=== PATIENT | male | born 1935 | race Caucasian/White ===

== ENCOUNTER → 2017-02-07 | Outpatient (CLI) | payer MEDICARE, OTHER ==
[~2017-02-07] MED LIST: ASPI-587 PO; ATOR20TA66 PO; ESCI20TA2 PO; FENT1PAT2 TD; OMEP40CA36 PO; PREG150C PO; SILO8CAP PO; TRAM100T28 PO
--- NOTE | 2017-02-07 18:35 | Diagnostic Imaging Report ---
EXAM: PA and lateral views of the chest. INDICATION: Cough. Chest pain. FINDINGS: The lungs are clear. The heart size is normal. No effusion or pneumothorax. The mediastinum and moi appear unremarkable. IMPRESSION: Unremarkable exam. Dictated by: Dictated on workstation # [id number]
== END ==
LOC: RAD 13:55
PROVIDERS: ATTEND Internal Medicine
DX: R05 Cough (principal); R07.9 Chest pain, unspecified
CPT/HCPCS: 71020

== ENCOUNTER → 2022-02-24 | Outpatient (CLI) | payer MEDICARE, OTHER ==
[~2022-02-24] MED LIST changes: +CATHETER FLUSH 10 ML SYR IV PRN; +HOLD METFORMIN - RECEIVED CONTRAST 20 ML VIAL IV SCH; +IOHEXOL 350 MG/ML 100 ML (OMNIPAQUE 350) VIAL IV ONE; +NS 100 ML (IVPB) BAG IV ONE
--- NOTE | 2022-02-24 14:25 | Diagnostic Imaging Report ---
PROCEDURE: CT abdomen and pelvis with contrast. TECHNIQUE: Multiple contiguous axial images were obtained through the abdomen and pelvis after administration of intravenous contrast. Auto Exposure Controls were utilized during the CT exam to meet ALARA standards for radiation dose reduction. All CT scans use one or more of the following dose optimizing techniques: automated exposure control, MA and/or KvP adjustment based on patient size and exam type or iterative reconstruction. INDICATION: Lower abdominal pain and hematuria. Patient has history of kidney stones. COMPARISON: No prior studies are available for comparison. FINDINGS: Lung bases are clear of acute infiltrates. Liver shows a circumscribed low-attenuation lesion in the left lobe measuring 3.0 cm in diameter and suggestive of a cyst. Gallbladder is surgically absent. Extrahepatic bile duct is prominent which may be owing to post cholecystectomy. The pancreas and spleen are unremarkable. No adrenal mass is detected. Right kidney does contain an approximately 5 to 6 mm nonobstructing calculus. No ureteral calculi or hydronephrosis are identified. Bladder does show a lobulated mass along the right bladder wall measuring 19 mm in size consistent with a small bladder neoplasm. Prostate is unremarkable. Aorta is nonaneurysmal. No central retroperitoneal or mesenteric lymphadenopathy is seen. Bowel loops are nonobstructed. There is no free fluid or fluid collection. No pelvic lymphadenopathy is identified. Bony structures are nonacute. IMPRESSION: 1. Hepatic cyst. 2. Status post cholecystectomy. 3. Nonobstructing right renal calculus. 4. Soft tissue mass along the right bladder wall suggestive of a bladder neoplasm. Cystoscopy is recommended. Dictated by: Dictated on workstation # [id number]
== END ==
LOC: RAD 13:45
PROVIDERS: ATTEND Internal Medicine
DX: N20.0 Calculus of kidney (principal); K76.89 Other specified diseases of liver; N32.89 Other specified disorders of bladder; Z90.49 Acquired absence of other specified parts of digestive tract
CPT/HCPCS: 74177

== ENCOUNTER 2022-03-18 05:32 | Outpatient (CLI) | payer MEDICARE, OTHER ==
[~2022-03-18] VITALS: Ht 185.5 cm; Wt 102.3 kg
[~2022-03-18 05:32] MED LIST changes: -CATHETER FLUSH 10 ML SYR IV PRN; -HOLD METFORMIN - RECEIVED CONTRAST 20 ML VIAL IV SCH; -IOHEXOL 350 MG/ML 100 ML (OMNIPAQUE 350) VIAL IV ONE; -NS 100 ML (IVPB) BAG IV ONE
[2022-03-19] MEDS ORDERED: FENT1PAT11 TD (17:49)
[2022-03-19] MEDS ORDERED: TEST60GE2 TD (17:49)
[2022-03-19] MEDS ORDERED: SILO8CAP6 PO (17:49)
== END 2022-03-19 18:00 | disposition home or self-care (01) ==
LOC: PREOP 05:32
PROVIDERS: ATTEND Urology
DX: Z01.818 Encounter for other preprocedural examination (principal)

== ENCOUNTER 2022-03-24 07:04 | Day surgery (SDC) | payer MEDICARE, OTHER ==
[2022-03-24] VITALS (11 sets, daily range): BP systolic 91–175; BP diastolic 56–109
[~2022-03-24] VITALS: Ht 185.5 cm; Wt 102.3 kg
[~2022-03-24 07:04] MED LIST changes: +FENT1PAT11 TD; +SILO8CAP6 PO; +TEST60GE2 TD
[2022-03-24] MEDS ORDERED: cefTRIAXone 1 GM PRE-MIX 50 ML IV ONE (07:15)
--- NOTE | 2022-03-24 07:20 | Progress Note-Pre Operative ---
Pre-Operative Progress Note H&P Reviewed The H&P was reviewed, patient examined and no changes noted. Date Seen by Provider: March 24, 2022 Time Seen by Provider: 07:20 Date H&P Reviewed: March 24, 2022 Time H&P Reviewed: 07:20 Pre-Operative Diagnosis: BLADDER TUMOR NICHOLE HARMON MD March 24, 2022 07:20
--- NOTE | 2022-03-24 07:21 | Progress Note-Post Operative ---
Post-Operative Progess Note Surgeon (s)/Horseradish Grinder (s) Surgeon NICHOLE HARMON MD Horseradish Grinder: NONE Pre-Operative Diagnosis BLADDER TUMOR (LARGE) Post-Operative Diagnosis SAME Procedure & Operative Findings Date of Procedure 03/24/22 Procedure Performed/Findings TURBT Anesthesia Type GENERAL Estimated Blood Loss Estimated blood loss (mL): NEGLIGIBLE Specimens/Packing Specimens Removed BLADDER TUMOR AND BASE Packing: NONE NICHOLE HARMON MD March 24, 2022 07:21
--- NOTE | 2022-03-24 07:22 | Discharge Inst-Urology ---
Discharge Inst-Urology Reconcile Patient Problems Problems Reviewed?: Yes Final Diagnosis BLADDER TUMOR Patient Instructions/Follow Up Plan/Assessment/Instructions Please make appointment to been seen in office in 2 weeks. Increase oral fluids for 48 hours and then as needed. Diet and Activity as tolerated. If questions or concerns contact your physician Or seek help at emergency department. NICHOLE HARMON MD March 24, 2022 07:22
[2022-03-24] MEDS ORDERED: fentaNYL INJ 100 MCG/2 ML AMP IVP ONE ×2 (08:00→10:15)
[2022-03-24] MEDS: LACTATED RINGERS 1,000 ML IV PRN ×2 (08:00→10:00)
[2022-03-24] MEDS ORDERED: fentaNYL INJ 100 MCG/2 ML AMP ONE ×2 (08:02→08:41)
[2022-03-24] MEDS ORDERED: proPOfol 200 MG/20 ML (DIPRIVAN) VIAL IV ONE (08:41)
[2022-03-24] MEDS ORDERED: LIDOCAINE PF 2% 5 ML (XYLOCAINE) VIAL ONE (08:41)
[2022-03-24] MEDS ORDERED: ONDANSETRON 4 MG/2 ML (SDV) Z0FRAN ONE (08:41)
[2022-03-24] MEDS ORDERED: SEVOFLURANE (ULTANE) 15 ML INHAL SOLN ONE (10:04)
--- NOTE | 2022-03-24 10:11 | Anesthesia-General Post-Op ---
General Patient Condition Mental Status/LOC: Same as Preop Cardiovascular: Satisfactory Nausea/Vomiting: Absent Respiratory: Satisfactory Pain: Controlled Complications: Absent Post Op Complications Complications None Follow Up Care/Instructions Patient Instructions None needed. Anesthesia/Patient Condition Patient Condition Patient is doing well, no complaints, stable vital signs, no apparent adverse anesthesia problems. No complications reported per nursing. MOISE REID CRNA March 24, 2022 10:11
[2022-03-24] MEDS ORDERED: MEPERIDINE (DEMEROL) INJ 50 MG/ML IVP ONE (10:15)
[2022-03-24] MEDS ORDERED: PHEN-640 PO (10:15)
[2022-03-24] MEDS ORDERED: ONDANSETRON 4 MG/2 ML (SDV) Z0FRAN IVP PRN (10:15)
[2022-03-24] MEDS ORDERED: CIPR-226 PO (10:15)
[2022-03-24] MEDS ORDERED: PHENAZOPYRIDINE 100 MG (PYRIDIUM) TABLET PO ONE (11:15)
[2022-03-24] MEDS ORDERED: HYDROcodone/APAP 5 MG/325 MG (LORTAB) TAB ONE (14:23)
[2022-03-24] MEDS ORDERED: HYDROcodone/APAP 5 MG/325 MG (LORTAB) TAB PO ONE (14:30)
--- NOTE | 2022-03-24 15:05 | OPERATIVE REPORT ---
DATE OF SERVICE: 03/24/2022 PREOPERATIVE DIAGNOSIS: Large bladder tumor. POSTOPERATIVE DIAGNOSIS: Large bladder tumor. OPERATION PERFORMED: Transurethral resection of large bladder tumor. SURGEON: Nichole Harmon MD ANESTHESIA: General. COMPLICATIONS: None. PROCEDURE IN DETAIL: The patient in lithotomy position, under general anesthesia, the genitalia were prepped and draped in the usual sterile fashion. Urethra was dilated with Renny sound to #30 [place] to accommodate 27-[place] Arredondo resectoscope. Again, visualized a single large bladder tumor in the anterior wall roof of the bladder to the right, which makes the position very difficult for resection. However, I was able to resect the tumor completely, cauterized all bleeders and obtained a separate bite from the base where the stalk of the papillary type tumor connected to the bladder. Hemostasis was complete. The bladder chips were sent separately from the base. Estimated blood loss was negligible. The patient tolerated the procedure and anesthesia well and was sent to recovery room in stable condition. CC: Dr. Ng - requested, unable to deliver. Job ID: [id number] DocumentID: [id number] Dictated Date: 03/24/2022 10:10:18 Geology Technician Date: 03/24/2022 15:04:38 Dictated By: NICHOLE HARMON MD
== END 2022-03-24 14:55 | disposition home or self-care (01) ==
LOC: SDC 07:04
PROVIDERS: ATTEND Urology
DX: C67.9 Malignant neoplasm of bladder, unspecified (principal)
CPT/HCPCS: 87081; 88307

== ENCOUNTER 2022-03-26 13:58 | Inpatient (IN) | payer MEDICARE, OTHER ==
[~2022-03-26] VITALS: Ht 185 cm; Wt 102.0 kg
[~2022-03-26 13:58] MED LIST changes: +CIPR-226 PO; +PHEN-640 PO
--- NOTE | 2022-03-26 14:22 | ED Abdominal Pain ---
General Chief Complaint: Abdominal/GI Problems Stated Complaint: POST OP BLOATING Source of Information: Patient Exam Limitations: No Limitations History of Present Illness Date Seen by Provider: March 26, 2022 Time Seen by Provider: 14:19 Initial Comments Patient is a 87-year-old male who presents ED with abdominal discomfort and bloating with distention. Patient had bladder tumor resection performed by Dr. Richards on Tuesday. Had a large tumor removed. Since his surgery has had some lower abdominal discomfort and continues bloating. Dry heaving without vomiting. Has had bowel movements. Was seen in the clinic today and found to have 250 cc in his bladder that was described as orange. He states he is urin ating every 5-12 hours a very small amount. Dr. Richards is concerned for possible bladder injury secondary to the surgery and possible leaking in his peritoneum. Recommended lab work and CT abdomen and cystogram. Patient denies fever, chest pain, shortness of breath, headache, dizziness. Allergies and Home Medications Allergies Coded Allergies: morphine (Unverified Allergy, Severe, 03/19/22) HALLUCINATIONS Patient Home Medication List Home Medication List Reviewed: Yes Ciprofloxacin HCl (Cipro) 250 Mg Tablet, 250 MG PO BID Prescribed by: JACQUELINE LARES on 03/24/22 1015 Escitalopram Oxalate (Lexapro) 20 Mg Tablet, 20 MG PO BID, (Reported) Entered as Reported by: COLLEEN COLBY on 12/10/14 1143 Fentanyl (Fentanyl Patch 100 MCG) 100 Mcg/Hour Patch.td72, 100 MCG TD Q48H, (Reported) Entered as Reported by: JOSH SAMAYOA on 03/19/22 1749 Omeprazole (Omeprazole) 40 Mg Capsule.dr, 40 MG PO DAILY, (Reported) Entered as Reported by: COLLEEN COLBY on 12/10/14 1143 Phenazopyridine HCl (Pyridium) 200 Mg Tablet, 1 TAB PO TID PRN for PAIN-MILD (1- 4) Prescribed by: JACQUELINE LARES on 03/24/22 1015 Pregabalin (Lyrica) 150 Mg Capsule, 300 MG PO BID, (Reported) Entered as Reported by: COLLEEN COLBY on 12/10/14 1143 Silodosin (Silodosin) 8 Mg Capsule, 8 MG PO HS, (Reported) Entered as Reported by: JOSH SAMAYOA on 03/19/221748 Testosterone (Testosterone) Unknown Strength Gel.human services assistant, Unknown Dose TD, (Reported) Entered as Reported by: JOSH SAMAYOA on 03/19/221748 Tramadol Hcl (Tramadol Hcl) 100 Mg Tbmp.24hr, 100 MG PO Q6H PRN for PAIN, (Reported) Entered as Reported by: COLLEEN COLBY on 12/10/14 1143 Review of Systems Review of Systems Constitutional: No chills, No diaphoresis, No malaise, No weakness EENTM: No Blurred Vision, No Eye Pain, No Mouth Pain, No Mouth Swelling Respiratory: Denies Cough, Denies Shortness of Air, Denies SOA at Rest, Denies Stridor, Denies Wheezing Cardiovascular: Denies Chest Pain, Denies Edema Gastrointestinal: Abdomen Distended, Abdominal Pain; Denies Constipated, Denies Diarrhea; Nausea; Denies Vomiting Genitourinary: Denies Burning, Denies Discharge, Denies Flank Pain, Denies Hematuria Musculoskeletal: No back pain, No gout, No joint swelling, No muscle pain Skin: No change in color, No change in hair/nails All Other Systems Reviewed Negative Unless Noted: Yes Past Nqarheu-Tdlcbr-Lrgdtv Hx Immunizations Up To Date First/Initial COVID19 Vaccinat: 2020 Second COVID19 Vaccination Rohan: 2020 Seasonal Allergies Seasonal Allergies: Yes Past Medical History Surgeries: Yes (kidney stone, 2abd surgeries for adhesion, HERNIA REPAIR) Appendectomy, Gallbladder Respiratory: No Currently Using CPAP: No Currently Using BIPAP: No Cardiac: No Neurological: No Reproductive Disorders: No Genitourinary: Yes (BLADDER TUMOR) Kidney Stones Gastrointestinal: Yes Gastroesophageal Reflux Musculoskeletal: Yes (history of crushing injuries to shoulders) Endocrine: No HEENT: Yes (READERS, DENTURES) Cancer: Yes Bladder Psychosocial: Yes Sleep Difficulties, Anxiety, Depression Blood Disorders: Yes (had increased hgb and had therapeutic phlebotomy) Adverse Reaction/Blood Tranf: No Physical Exam Vital Signs Vital Signs - First Documented 03/26/22 14:15 Temp 36.7 Pulse 90 Resp 14 B/P (MAP) 188/103 (131) Pulse Ox 92 O2 Delivery Nasal Cannula Capillary Refill : Height/Weight/BMI Height: 6'0.00" Weight: 225lbs. oz. 102.575621ht; 29.72 BMI Method:Stated General Appearance: WD/WN, no apparent distress HEENT: PERRL/EOMI, normal ENT inspection, TMs normal, pharynx normal Neck: non-tender, full range of motion, supple, normal inspection Respiratory: chest non-tender, lungs clear, normal breath sounds, no respiratory distress, no accessory muscle use Cardiovascular: regular rate, rhythm, no edema, no gallop, no JVD Gastrointestinal: normal bowel sounds, distended, tenderness (Bilateral lower abdominal tenderness.) Extremities: normal range of motion, non-tender, normal inspection, no pedal edema Back: normal inspection, no CVA tenderness, no vertebral tenderness Neurologic/Psychiatric: apricot washer II-XII nml as tested, no motor/sensory deficits, alert, normal mood/affect, oriented x 3 Skin: normal color Progress/Results/Core Measures Results/Orders Lab Results Laboratory Tests Test 03/26/22 14:20 Range/Units White Blood Count 7.7 4.3-11.0 10^3/uL Red Blood Count 4.75 4.30-5.52 10^6/uL Hemoglobin 14.1 13.3-17.7 g/dL Hematocrit 40 40-54 % Mean Corpuscular Volume 84 80-99 fL Mean Corpuscular Hemoglobin 30 25-34 pg Mean Corpuscular Hemoglobin Concent 35 32-36 g/dL Red Cell Distribution Width 12.7 10.0-14.5 % Platelet Count 218 130-400 10^3/uL Mean Platelet Volume 9.7 9.0-12.2 fL Immature Granulocyte % (Auto) 0 % Neutrophils (%) (Auto) 63 42-75 % Lymphocytes (%) (Auto) 22 12-44 % Monocytes (%) (Auto) 14 H 0-12 % Eosinophils (%) (Auto) 1 0-10 % Basophils (%) (Auto) 0 0-10 % Neutrophils # (Auto) 4.8 1.8-7.8 X 10^3 Lymphocytes # (Auto) 1.7 1.0-4.0 X 10^3 Monocytes # (Auto) 1.1 H 0.0-1.0 X 10^3 Eosinophils # (Auto) 0.1 0.0-0.3 10^3/uL Basophils # (Auto) 0.0 0.0-0.1 10^3/uL Immature Granulocyte # (Auto) 0.0 0.0-0.1 10^3/uL Sodium Level 126 L 135-145 MMOL/L Potassium Level 4.7 3.6-5.0 MMOL/L Chloride Level 93 L 98-107 MMOL/L Carbon Dioxide Level 21 21-32 MMOL/L Anion Gap 12 5-14 MMOL/L Blood Urea Nitrogen 34 H 7-18 MG/DL Creatinine 5.11 H 0.60-1.30 MG/DL Estimat Glomerular Filtration Rate 10 BUN/Creatinine Ratio 7 Glucose Level 111 H 70-105 MG/DL Calcium Level 9.0 8.5-10.1 MG/DL Corrected Calcium 9.2 8.5-10.1 MG/DL Total Bilirubin 2.2 H 0.1-1.0 MG/DL Aspartate Amino Transf (AST/SGOT) 101 H 5-34 U/L Alanine Aminotransferase (ALT/SGPT) 65 H 0-55 U/L Alkaline Phosphatase 138 H 40-136 U/L Total Protein 7.0 6.4-8.2 GM/DL Albumin 3.8 3.2-4.5 GM/DL My Orders Orders - DEANDRE GREER PA Cbc With Automated Diff (03/26/22 14:04) Comprehensive Metabolic Panel (03/26/22 14:04) Ct Cystogram (03/26/22 14:04) Bladder Scan (03/26/22 14:20) Chest 1 View, Ap/Pa Only (03/26/22 14:33) Fentanyl Inj (Sublimaze Injection) (03/26/22 14:40) Ns Iv 1000 Ml (Sodium Chloride 0.9%) (03/26/22 14:54) Lidocaine 2% (Urojet) (Xylocaine Urojet) (03/26/22 15:00) Lidocaine 2% (Urojet) (Xylocaine Urojet) (03/26/22 14:56) Iohexol Injection (Omnipaque 350 Mg/Ml 1 (03/26/22 15:00) Received Contrast (Hold Metformin- Contr (03/26/22 15:00) Di Iv Start (Assessment) .IV start (03/26/22 14:58) Ct Abdomen Wo (03/26/22 ) Fentanyl Inj (Sublimaze Injection) (03/26/22 16:23) Ed Admission (Communication) (03/26/22 16:30) Fentanyl Inj (Sublimaze Injection) (03/26/22 16:30) Medications Given in ED Vital Signs/I&O 03/26/22 14:15 Temp 36.7 Pulse 90 Resp 14 B/P (MAP) 188/103 (131) Pulse Ox 92 O2 Delivery Nasal Cannula Departure Communication (Admissions) Time/Spoke to Admitting Phy: 16:[address] Richards who recommends catheter, IV hydration antibiotics (keflex) and pain medication. Redraw lab work in the morning. KUB to monitor progress. Patient does have a perforation of the bladder that shows extraperitoneal fluid with no intraperitoneal fluid. Did contact radiology at [place] to make sure and verified that there was no intraperitoneal fluid which they acknowledge that everything is extraperitoneal. The report from the cystography note only extraperitoneal fluid but the CT scan did note intraperitoneal. Radiology said there is no intraperitoneal fluid. Dr Richards will treat nonoperative at this time. Acute kidney injury with a creatinine of 5.11 and a GFR of 10. BUN 34. Patient was started on a liter of fluid. Possibly related to absorption of urine. Pain control with IV pain medication. Started patient on IV Rocephin. Patient will be admitted to Dr. Jacinto. Impression Primary Impression: Perforation of bladder Additional Impression: MASON (acute kidney injury) Disposition: ADMITTED INPATIENT Condition: Stable Admissions Decision to Admit Reason: Admit from ER (General) Decision to Admit/Date: March 26, 2022 Time/Decision to Admit Time: 16:31 Departure-Patient Inst. Referrals: CINDA CHAN MD (PCP/Family) Primary Care Physician DEANDRE GREER March 26, 2022 14:22
[2022-03-26 14:28] LABS: BASOPHILS % (AUTO) 0 % (0-10); EOSINOPHILS # (AUTO) 0.1 10^3/uL (0.0-0.3); EOSINOPHILS % (AUTO) 1 % (0-10); HEMATOCRIT 40 % (40-54); HEMOGLOBIN 14.1 g/dL (13.3-17.7); LYMPHOCYTES # (AUTO) 1.7 X 10^3 (1.0-4.0); LYMPHOCYTES % (AUTO) 22 % (12-44); MEAN CORPUSCULAR HEMOGLOBIN 30 pg (25-34); MEAN CORPUSCULAR HGB CONC 35 g/dL (32-36); MEAN CORPUSCULAR VOLUME 84 fL (80-99); MEAN PLATELET VOLUME 9.7 fL (9.0-12.2); MONOCYTES # (AUTO) 1.1 X 10^3 (0.0-1.0); MONOCYTES % (AUTO) 14 % (0-12); NEUTROPHILS # (AUTO) 4.8 X 10^3 (1.8-7.8); NEUTROPHILS % (AUTO) 63 % (42-75); PLATELET COUNT 218 10^3/uL (130-400); WHITE BLOOD COUNT 7.7 10^3/uL (4.3-11.0)
[2022-03-26] MEDS ORDERED: fentaNYL INJ 100 MCG/2 ML AMP IVP STA (14:40)
[2022-03-26 14:44] LABS: ALBUMIN 3.8 GM/DL (3.2-4.5); POTASSIUM 4.7 MMOL/L (3.6-5.0)
[2022-03-26 14:48] LABS: BILIRUBIN,TOTAL 2.2 MG/DL (0.1-1.0)
[2022-03-26 14:50] LABS: CREATININE SERUM 5.11 MG/DL (0.60-1.30)
[2022-03-26] MEDS ORDERED: NS IV 1000 ML 1,000 ML IV STA (14:54)
[2022-03-26] MEDS ORDERED: LIDOCAINE UROJET 2% GEL 10 ML PKG ONE (14:56)
[2022-03-26] MEDS ORDERED: LIDOCAINE UROJET 2% GEL 10 ML PKG TOP ONE (15:00)
[2022-03-26] MEDS ORDERED: HOLD METFORMIN - RECEIVED CONTRAST 20 ML VIAL IV SCH (15:00)
[2022-03-26] MEDS ORDERED: IOHEXOL 350 MG/ML 100 ML (OMNIPAQUE 350) VIAL IV ONE (15:00)
--- NOTE | 2022-03-26 15:51 | Diagnostic Imaging Report ---
CT CYSTOGRAM INDICATION: Recent bladder surgery for tumor resection. Abdominal pain. COMPARISON: None available. TECHNIQUE: CT abdomen and pelvis without contrast performed concurrently. FINDINGS: Precontrast imaging shows fluid within the retroperitoneal space in the mid abdomen. The urinary bladder has a Og catheter in place. There is moderate stranding throughout the preperitoneal space of Retzius. After instillation of contrast material into the urinary bladder, contrast fills the extraperitoneal space of Retzius through a defect in the right lateral wall of the urinary bladder. The contrast is predominantly maintained within the space of Retzius but does track along the right pelvic sidewall into the presacral space. It also extends cranially into the retroperitoneal space. No fracture. 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 Visualized bowel loops are not dilated. No pelvic or inguinal lymphadenopathy. IMPRESSION: 1. CT cystography confirms the presence of a focal perforation in the right lateral aspect of the urinary bladder with contrast spilling into the extraperitoneal retropubic space of Retzius. The extravasated contrast extends along the right pelvic sidewall and into the presacral space. Additionally, it extends cranially into the retroperitoneum. Dictated by: Dictated on workstation # [id number]
--- NOTE | 2022-03-26 15:52 | Diagnostic Imaging Report ---
INDICATION: Shortness of breath. Frontal chest obtained at 3:25 p.m. and compared to 02/07/2017. FINDINGS: Heart and mediastinal silhouette are normal in appearance. There is no focal infiltrate, pneumothorax, or pleural fluid. Old right clavicle fracture is noted. IMPRESSION: No acute process in the chest. Dictated by: Dictated on workstation # [id number]
--- NOTE | 2022-03-26 16:00 | Diagnostic Imaging Report ---
PROCEDURE: CT abdomen without contrast. TECHNIQUE: Multiple contiguous axial images were obtained through the abdomen without the use of intravenous contrast. Auto Exposure Controls were utilized during the CT exam to meet ALARA standards for radiation dose reduction. INDICATION: Recent bladder surgery. COMPARISON: CT cystogram performed concurrently. FINDINGS: A small amount of free intraperitoneal fluid present. Additionally, there is retroperitoneal fluid seen in the lower abdomen. Nonobstructing 5 mm right renal stone is unchanged. No free intraperitoneal air. Bibasilar atelectasis/scar. Unenhanced liver is stable in appearance with a simple cyst in the left hepatic lobe. The spleen and pancreas are grossly normal. No adrenal mass. No bowel obstruction. Mild degenerative dextrocurvature in the lumbar spine. IMPRESSION: 1. Small volume of retroperitoneal and intraperitoneal fluid. This is likely secondary to patient's bladder rupture that is better described in the separate CT cystogram report. Dictated by: Dictated on workstation # [id number]
[2022-03-26] MEDS ORDERED: fentaNYL INJ 100 MCG/2 ML AMP ONE (16:23)
[2022-03-26] MEDS ORDERED: fentaNYL INJ 100 MCG/2 ML AMP IVP ONE (16:30)
[2022-03-26] MEDS ORDERED: PHENAZOPYRIDINE 100 MG (PYRIDIUM) TABLET PO ONE (17:30)
[2022-03-26 17:57] VITALS: BP 192/97
[2022-03-26] MEDS ORDERED: ENOXAPARIN 40 MG/0.4 ML (LOVENOX) SYR SC SCH (18:15)
[2022-03-26] MEDS ORDERED: polyethylene glycoL POWDER 17 GM (MIRALAX) PACK PO PRN (18:15)
[2022-03-26] MEDS ORDERED: MELATONIN 3 MG TABLET PO PRN (18:15)
[2022-03-26] MEDS ORDERED: ONDANSETRON 4 MG (ZOFRAN) ORAL DISSOLVE TAB PO PRN (18:15)
[2022-03-26] MEDS ORDERED: ANTACID SUSP 30 ML UDC (MYLANTA) PO PRN (18:15)
[2022-03-26] MEDS ORDERED: ACETAMINOPHEN 325 MG TABLET PO PRN (18:15)
[2022-03-26] MEDS: NS IV 1000 ML 1,000 ML IV SCH ×2 (18:23→18:34)
[2022-03-26] MEDS ORDERED: ENOXAPARIN INJECTION 30 MG/0.3 ML SYR SC SCH (18:30)
[2022-03-26] MEDS ORDERED: cefTRIAXone 1 GM PRE-MIX 50 ML IV SCH (18:30)
[2022-03-26] MEDS: hydrALAZINE (APESOLINE) 20 MG/ML VIAL IV PRN ×2 (18:49→23:51)
[2022-03-26 19:36] VITALS: BP 188/77
[2022-03-26] MEDS ORDERED: hydrALAZINE (APESOLINE) 20 MG/ML VIAL IV SCH (20:00)
[2022-03-26 23:53] VITALS: BP 193/97
[2022-03-27] VITALS (8 sets, daily range): BP systolic 109–196; BP diastolic 62–108
[2022-03-27] MEDS: ONDANSETRON 4 MG/2 ML (SDV) Z0FRAN IV PRN ×2 (03:43→12:00)
[2022-03-27] MEDS ORDERED: hydrALAZINE (APESOLINE) 20 MG/ML VIAL IV PRN (04:00)
[2022-03-27] MEDS: fentaNYL INJ 100 MCG/2 ML AMP IVP PRN ×2 (04:13→09:31)
[2022-03-27] MEDS: NS IV 1000 ML 1,000 ML IV SCH (04:14)
[2022-03-27] MEDS ORDERED: POTASSIUM CL 10MEQ/50ML IVPB 50 ML IV SCH (06:00)
[2022-03-27] MEDS ORDERED: MAGNESIUM 1 GM/100 ML IVPB 100 ML IV SCH (06:00)
[2022-03-27] MEDS ORDERED: KCL 20 MEQ TAB (K-DUR) PO SCH (06:00)
[2022-03-27 09:19] LABS: CALCIUM 8.7 MG/DL (8.5-10.1); CREATININE SERUM 1.85 MG/DL (0.60-1.30); MAGNESIUM 2.4 MG/DL (1.6-2.4); POTASSIUM 4.2 MMOL/L (3.6-5.0)
--- NOTE | 2022-03-27 10:47 | Diagnostic Imaging Report ---
EXAM: ABDOMEN/KUB 1VIEW INDICATION: Bladder perforation. COMPARISON: CT cystogram 03/26/2022. FINDINGS: Nonspecific bowel gas pattern. No free intraperitoneal air is identified. The lung bases are clear. No acute osseous findings. IMPRESSION: No acute radiographic findings in the abdomen. Dictated by: Dictated on workstation # [id number]
--- NOTE | 2022-03-27 14:24 | Discharge Inst-Urology ---
Discharge Inst-Urology Reconcile Patient Problems Problems Reviewed?: Yes Final Diagnosis EXTRAPERITONEAL BLADDER PERFORATION Patient Instructions/Follow Up Plan/Assessment/Instructions Discharge with de la cruz and leg bag day time and large bag night time with instructions. Call office Tuesday to change follow up appointment to monday 04/02 Keep all postop instructions Increase oral fluids for 48 hours and then as needed. Diet and Activity as tolerated. If questions or concerns contact your physician Or seek help at emergency department. NICHOLE HARMON MD March 27, 2022 14:24
--- NOTE | 2022-03-27 19:20 | CONSULTATION REPORT ---
DATE OF SERVICE: 03/27/2022 ATTENDING PHYSICIAN: Dr. Jacinto. SUMMARY: An 87-year-old white man, who had a large bladder tumor resected two days prior to his admission, was really uneventful with no bleeding, no problem, went home without a catheter. He started having some problems on with some bloating and some discomfort and tenderness, but did not call the office until Tuesday, the morning of his admission, when he complained of a feeling of retention and incomplete emptying. He came to the office in 250 mL of clear urine, orange in color secondary to Pyridium was drained. There was no bleeding. Nurse noticed that he is being a kind of little distended especially on the right side with tenderness and question of rebound. I was on my way to [place] and she called me and informed me so I told her to have the patient to go to the emergency room; however, the patient said that he may go next day if he is not feeling well. We insisted and he recently went to the emergency room with his . I called the emergency room and gave them orders. He had a CT cystogram and CT abdomen, which revealed an extraperitoneal leak from the site of the tumor all extraperitoneal and retroperitoneal, but no intraperitoneal perforation or leakage. At that time, the ER was concerned because his creatinine was 5.11 and GFR of 10. His BUN was 30. They started him on fluid, pain control and IV medicine, IV Rocephin oral at my instruction. I told him that the increase in creatinine is most probably due to absorption of urine that is creatinine, but we went ahead and admitted him. Today, he is doing very well, feeling much better. Pain is much improved. His creatinine was down to 1.8. His urine remains clear and no blood. He expressed the wish to go home, which I had no objection about it. I got the okay from Dr. Jacinto, medically speaking and he consented it. I had a lengthy discussion with him and his and his family that this complication was the result of the surgery causing some seepage of urine into the extraperitoneum and the retroperitoneum, none into the intraperitoneum and that we will treat it with a catheter for seven days. I will see him back at the office and we will order a cystogram to make sure the area has healed before we decide to take the catheter out. I stressed that if he has any problem to call the office or come to the emergency room and stressed with his family and his as well. I checked with Dr. Jacinto and he was agreeable and asked me to go ahead and write the discharge orders, which I did. We will see him back next Tuesday at the office. He is to continue his Cipro at home. IMPRESSION: Extraperitoneal perforation of the bladder. PLAN: As above. CC: Kimberly Jacinto - requested, unable to deliver. Job ID: [id number] DocumentID: [id number] Dictated Date: 03/27/2022 14:29:59 Sole Stapler Welt Date: 03/27/2022 19:20:23 Dictated By: NICHOLE HARMON MD
[2022-03-28] MEDS ORDERED: HYDR-3820 PO (14:01)
== END 2022-03-27 15:13 | disposition home or self-care (01) | DRG 699 ==
LOC: EDUNIT# 13:58 → ER 14:00 → 4TH 16:31
PROVIDERS: ADMIT Internal Medicine; ATTEND Internal Medicine
DX: N99.89 Other postprocedural complications and disorders of genitourinary system (principal); N17.9 Acute kidney failure, unspecified; N32.89 Other specified disorders of bladder; K21.9 Gastro-esophageal reflux disease without esophagitis; F41.9 Anxiety disorder, unspecified; F32.A Depression, unspecified
CPT/HCPCS: 36415; 51702; 71045; 72192; 74018; 74150; 80048; 80053; 83735; 85025; 96374; 96375

== ENCOUNTER 2022-03-28 10:06 | Emergency (ER) | payer MEDICARE, OTHER ==
[2022-03-28] MEDS ORDERED: LACTATED RINGERS 1,000 ML IV STA (10:38)
[2022-03-28] MEDS ORDERED: fentaNYL INJ 100 MCG/2 ML AMP IVP STA (10:38)
[2022-03-28] MEDS ORDERED: ORPHENADRINE 60 MG/2 ML (NORFLEX) AMP (ED ONLY) IV STA (10:38)
[2022-03-28] MEDS ORDERED: ONDANSETRON 4 MG/2 ML (SDV) Z0FRAN IVP ONE (10:45)
--- NOTE | 2022-03-28 10:47 | ED General ---
General Chief Complaint: General Problems/Pain Stated Complaint: HEADACHE/NAUSEA Nursing Triage Note: PT TO ER BY WC WITH WITH C/O DRY HEAVES SINCE YESTERDAY AND HEADACHE. PT D/C'D FROM MED SURG YESTERDAY AFTERNOON Source of Information: Patient Exam Limitations: No Limitations History of Present Illness Date Seen by Provider: March 28, 2022 Time Seen by Provider: 10:25 Initial Comments Here with report of dry heaves and headache as well as allover pain is worse since discharge from here yesterday afternoon. Does have fentanyl patch in place to his back that is 100 mcg patch that he placed this morning. Apparently he was off of that for 2 days while in the hospital. He was in the hospital for bladder rupture after urology procedure with Dr. Richards. He had acute kidney injury with creatinine greater than 5 but improved yesterday to 1.8. States that he did have a bowel movement 3 days ago and is currently still passing gas. Og catheter draining dark yellow fluid. Denies fever or chills. Denies other symptoms other than shoulder, back and headache, dry heaves and not feeling well. Timing/Duration: 24 Hours, Getting Worse Severity: Moderate, Severe Associated Systoms: No Chest Pain, No Cough, No Fever/Chills; Headaches, Nausea/Vomiting; No Shortness of Air; Weakness Allergies and Home Medications Allergies Coded Allergies: morphine (Unverified Allergy, Severe, 03/19/22) HALLUCINATIONS Patient Home Medication List Home Medication List Reviewed: Yes Ciprofloxacin HCl (Cipro) 250 Mg Tablet, 250 MG PO BID Prescribed by: JACQUELINE LARES on 03/24/22 1015 Escitalopram Oxalate (Lexapro) 20 Mg Tablet, 20 MG PO BID, (Reported) Entered as Reported by: COLLEEN COLBY on 12/10/14 1143 Fentanyl (Fentanyl Patch 100 MCG) 100 Mcg/Hour Patch.td72, 100 MCG TD Q48H, (Reported) Entered as Reported by: JOSH SAMAYOA on 03/19/22 1749 Omeprazole (Omeprazole) 40 Mg Capsule., 40 MG PO DAILY, (Reported) Entered as Reported by: COLLEEN COLBY on 12/10/14 1143 Phenazopyridine HCl (Pyridium) 200 Mg Tablet, 1 TAB PO TID PRN for PAIN-MILD (1- 4) Prescribed by: JACQUELINE LARES on 03/24/22 1015 Pregabalin (Lyrica) 150 Mg Capsule, 300 MG PO BID, (Reported) Entered as Reported by: COLLEEN COLBY on 12/10/14 114 Silodosin (Silodosin) 8 Mg Capsule, 8 MG PO HS, (Reported) Entered as Reported by: JOSH SAMAYOA on 03/19/221748 Testosterone (Testosterone) 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, 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 Dose TD, (Reported) Entered as Reported by: JOSH SAMAYOA on 03/19/22 174 Tramadol Hcl (Tramadol Hcl) 100 Mg Tbmp.24hr, 100 MG PO Q6H PRN for PAIN, (Reported) Entered as Reported by: COLLEEN COLBY on 12/10/14 1143 Review of Systems Review of Systems Constitutional: see HPI; No chills; diaphoresis; No fever; weakness EENTM: No nose congestion, No throat pain Respiratory: No cough, No short of breath Cardiovascular: No chest pain, No edema Gastrointestinal: No nausea, No vomiting Genitourinary: no symptoms reported Musculoskeletal: back pain, joint pain, muscle pain Skin: No change in color, No lesions Psychiatric/Neurological: Headache, Weakness All Other Systems Reviewed Negative Unless Noted: Yes Past Tcytcoe-Ezfidc-Bevbkw Hx Patient Social History Tobacco Use?: No Use of E-Cig and/or Vaping dev: No Substance use?: No Alcohol Use?: No Pt feels they are or have been: No Immunizations Up To Date First/Initial COVID19 Vaccinat: 2020 Second COVID19 Vaccination Rohan: 2020 Third COVID19 Vaccination Date: 2020 COVID19 Vaccine Tie Cutter: KATE Seasonal Allergies Seasonal Allergies: Yes Past Medical History Surgery/Hospitalization HX: PMH: KIDNEY STONES, ANXIETY, CHRONIC PAIN SX: APPY, GALLBLADDER, HERNIA REPAIR Surgeries: Yes (kidney stone, 2abd surgeries for adhesion, HERNIA REPAIR) Appendectomy, Gallbladder Respiratory: No Currently Using CPAP: No Currently Using BIPAP: No Cardiac: No Neurological: No Reproductive Disorders: No Genitourinary: Yes (BLADDER TUMOR) Kidney Stones Gastrointestinal: Yes Gastroesophageal Reflux Musculoskeletal: Yes (history of crushing injuries to shoulders) Endocrine: No HEENT: Yes (READERS, DENTURES) Cancer: Yes Bladder Psychosocial: Yes Sleep Difficulties, Anxiety, Depression Blood Disorders: Yes (had increased hgb and had therapeutic phlebotomy) Adverse Reaction/Blood Tranf: No Family Medical History Reviewed Nursing Family Hx Physical Exam Vital Signs Vital Signs - First Documented 03/28/22 10:10 Temp 35.9 Pulse 92 Resp 18 B/P (MAP) 169/98 (121) Capillary Refill : Height, Weight, BMI Height: 6'0.00" Weight: 225lbs. oz. 102.655581wo; 29.80 BMI Method:Stated General Appearance: WD/WN, Moderate Distress HEENT: PERRL/EOMI, Pharynx Normal Neck: Non Tender, Supple Respiratory: Lungs Clear, Normal Breath Sounds Cardiovascular: Regular Rate, Rhythm, No Murmur Gastrointestinal: Soft, Tenderness (Central abdomen and suprapubic) Genital/Rectal: Other (Og catheter draining dark yellow urine) Back: Normal Inspection, Other (Tender throughout the back overall) Extremity: Normal Range of Motion, No Calf Tenderness, No Pedal Edema Neurologic/Psychiatric: Alert, Oriented x3 Skin: Normal Color, Warm/Dry Progress/Results/Core Measures Suspected Sepsis SIRS Temperature: Pulse: 92 Respiratory Rate: 18 Laboratory Tests 03/28/22 10:12: White Blood Count 7.5 Blood Pressure 169 /98 Mean: 121 Laboratory Tests 03/28/22 10:12: Creatinine 0.97, Platelet Count 268, Total Bilirubin 1.7H Results/Orders Lab Results Laboratory Tests Test 03/28/22 10:12 Range/Units White Blood Count 7.5 4.3-11.0 10^3/uL Red Blood Count 5.15 4.30-5.52 10^6/uL Hemoglobin 15.2 13.3-17.7 g/dL Hematocrit 44 40-54 % Mean Corpuscular Volume 85 80-99 fL Mean Corpuscular Hemoglobin 30 25-34 pg Mean Corpuscular Hemoglobin Concent 35 32-36 g/dL Red Cell Distribution Width 12.7 10.0-14.5 % Platelet Count 268 130-400 10^3/uL Mean Platelet Volume 10.1 9.0-12.2 fL Immature Granulocyte % (Auto) 1 % Neutrophils (%) (Auto) 75 42-75 % Lymphocytes (%) (Auto) 15 12-44 % Monocytes (%) (Auto) 9 0-12 % Eosinophils (%) (Auto) 1 0-10 % Basophils (%) (Auto) 0 0-10 % Neutrophils # (Auto) 5.6 1.8-7.8 10^3/uL Lymphocytes # (Auto) 1.1 1.0-4.0 10^3/uL Monocytes # (Auto) 0.7 0.0-1.0 10^3/uL Eosinophils # (Auto) 0.1 0.0-0.3 10^3/uL Basophils # (Auto) 0.0 0.0-0.1 10^3/uL Immature Granulocyte # (Auto) 0.1 0.0-0.1 10^3/uL Sodium Level 136 135-145 MMOL/L Potassium Level 4.1 3.6-5.0 MMOL/L Chloride Level 98 98-107 MMOL/L Carbon Dioxide Level 25 21-32 MMOL/L Anion Gap 13 5-14 MMOL/L Blood Urea Nitrogen 14 7-18 MG/DL Creatinine 0.97 0.60-1.30 MG/DL Estimat Glomerular Filtration Rate 77 BUN/Creatinine Ratio 14 Glucose Level 130 H 70-105 MG/DL Calcium Level 9.4 8.5-10.1 MG/DL Corrected Calcium 9.5 8.5-10.1 MG/DL Total Bilirubin 1.7 H 0.1-1.0 MG/DL Aspartate Amino Transf (AST/SGOT) 35 H 5-34 U/L Alanine Aminotransferase (ALT/SGPT) 40 0-55 U/L Alkaline Phosphatase 119 40-136 U/L Total Creatine Kinase 201 H 30-200 U/L Total Protein 7.3 6.4-8.2 GM/DL Albumin 3.9 3.2-4.5 GM/DL My Orders Orders - MARIXA ALVARADO MD Cbc With Automated Diff (03/28/22 10:38) Comprehensive Metabolic Panel (03/28/22 10:38) Creatine Kinase (03/28/22 10:38) Ondansetron Injection (Zofran Injectio (03/28/22 10:45) Lactated Ringers (Lr 1000 Ml Iv Solution (03/28/22 10:38) Ed Iv/Invasive Line Start (03/28/22 10:38) Fentanyl Inj (Sublimaze Injection) (03/28/22 10:38) Orphenadrine Inj (Ed Only) (Norflex Inje (03/28/22 10:38) Lorazepam Injection (Ativan Injection) (03/28/22 11:15) Hydromorphone Injection (Dilaudid Inject (03/28/22 11:45) Ct Head/Cervical Spine Wo (03/28/22 12:13) Hydralazine Injection (Apresoline Inject (03/28/22 13:30) Hydromorphone Injection (Dilaudid Inject (03/28/22 14:00) Medications Given in ED Current Medications Medications Dose Ordered Sig/Adam Route Start Time Stop Time Status Last Admin Dose Admin Hydralazine HCl 10 mg ONCE ONCE IV 03/28/22 13:30 03/28/22 13:31 DC 03/28/22 13:38 10 MG Hydromorphone HCl 1 mg ONCE ONCE IV 03/28/22 11:45 03/28/22 11:46 DC 03/28/22 12:02 1 MG Lorazepam 0.5 mg ONCE ONCE IVP 03/28/22 11:15 03/28/22 11:16 DC 03/28/22 11:11 0.5 MG Ondansetron HCl 4 mg ONCE ONCE IVP 03/28/22 10:45 03/28/22 10:46 DC 03/28/22 10:59 4 MG Vital Signs/I&O 03/28/22 10:10 Temp 35.9 Pulse 92 Resp 18 B/P (MAP) 169/98 (121) Capillary Refill : Blood Pressure Mean: 121 Progress Note : Progress Note Seen and evaluated. Symptoms may be multifactorial given his recent hospitalization. He just restarted his fentanyl patch today and narcotic withdrawal may be part of this but he did have acute kidney injury and bladder rupture. We will get basic labs. Due to his need to move all the time due to pain, we will go ahead and check total CK as well. LR 1 L bolus and Zofran 4 mg IV ordered. Fentanyl 75 mcg IV and Norflex 60 mg IV ordered. Monitor patient. 1356: We have given an additional milligram of Dilaudid IV which did significantly help his pain. CT head and neck ordered due to headache and pain. Those results were reviewed. Overall he is doing much better after the Dilaudid but still having some breakthrough pain. I will go ahead and do another half a milligram of Dilaudid now which I think will help. Overall he is way better than arrival. He and the family feel comfortable with him going home. I will write for short course of breakthrough pain medicine which he may need extended. I will send a copy of the chart to Dr. Ng. Blood pressure improved after 10 mg of hydralazine. He will continue his home medications and follow-up with Dr. Ng on his blood pressure as well. Discharged home with return precautions. Patient and family verbalized understanding of instructions and agreement with plan. Diagnostic Imaging Diagonstic Imaging: CT Plain Films/CT/US/NM/MRI: c-spine, head Comments [facility]. [place], [place] NAME: MARBELLA WHITE [facility] REC#: [id number] PT STATUS: REG ER : 1935 PHYSICIAN: MARIXA ALVARADO MD ADMIT DATE: 03/28/22/ER Draft Date of Exam:03/28/22 CT HEAD/CERVICAL SPINE WO PROCEDURE: CT head and CT cervical spine without contrast. TECHNIQUE: Multiple contiguous axial images were obtained through the brain and cervical spine without the use of intravenous contrast. Sagittal and coronal reformations through the cervical spine were then performed. Auto Exposure Controls were utilized during the CT exam to meet ALARA standards for radiation dose reduction. INDICATION: Head and neck pain. Trauma. FINDINGS: There are no CT findings of acute intracranial hemorrhage. There is age-related global volume loss. There are no findings of an abnormal extra-axial collection. There is no intracranial mass effect or shift. There is no hydrocephalus. There is no abnormal extra-axial collection. The basilar cisterns appear patent. Posterior fossa demonstrates no acute process. Mastoid air cells appear clear. The paranasal sinuses are clear. There is no air-fluid level. The orbital contents are unremarkable. Cervical spine demonstrates severe multilevel degenerative disc disease with prominent ventral cervical spine osteophytes. There is reversal of the cervical lordosis. There is normal alignment of the craniocervical junction with maintenance of appropriate relationships of the lateral masses of C1 and C2. There is a slight degenerative anterolisthesis of C7 on T1 due to facet arthropathy. The facets are normally aligned. There is no facet joint or disc space widening. The vertebral body heights are maintained without findings of an acute cervical spine fracture. Note is made of a remote healed right clavicular shaft fracture. The lung apices are clear. The soft tissues of the neck demonstrate no acute process. IMPRESSION: 1. Advanced age-related volume loss without CT evidence of hemorrhage or of an acute intracranial abnormality. There is no calvarial fracture 2. Advanced degenerative features with bulky endplate osteophytes throughout the cervical spine. There are no findings of traumatic malalignment or of an acute cervical spine fracture. 3. Remote right clavicle fracture. Dictated on workstation # [id number] Dict: 03/28/22 1305 Trans: 03/28/22 1313 [facility] [id number] Interpreted by: JAIR DAVILA MD Electronically signed by: Departure Impression Primary Impression: Neck pain Additional Impressions: Headache Qualified Codes: R51.9 - Headache, unspecified Dehydration Uncontrolled hypertension Disposition: HOME, SELF-CARE Condition: Stable Departure-Patient Inst. Decision time for Depature: 13:58 Referrals: CINDA NG MD (PCP/Family) Primary Care Physician Patient Instructions: High Blood Pressure ED, Dehydration, Adult ED, Headache, Adult, Acute Pain, Adult Add. Discharge Instructions: All discharge instructions reviewed with patient and/or family. Voiced understanding. You may consider using MiraLAX or the generic 1/2-1 capful twice daily as needed to keep stools soft. You may increase or decrease the dose to keep stools in normal range. Follow-up with Dr. Ng tomorrow for recheck and further evaluation. Call his office to discuss appointment. Continue home medications as previously prescribed. Take other medications as directed. Return for worse pain, fever, vomiting, weakness, breathing problems or other concerns as needed. Scripts Hydrocodone/Acetaminophen (Hydrocodone-Acetamin 10-325 mg) 10 Mg-325 Mg Tablet 1 EACH PO Q6H PRN for PAIN-MODERATE (5-7), #14 TAB 0 Refills Prov: MARIXA ALVARADO MD 03/28/22 Copy Copies To 1: CINDA NG MD, TIMOTHY D MD March 28, 2022 10:47
[2022-03-28 10:52] LABS: BASOPHILS % (AUTO) 0 % (0-10); EOSINOPHILS # (AUTO) 0.1 10^3/uL (0.0-0.3); EOSINOPHILS % (AUTO) 1 % (0-10); HEMATOCRIT 44 % (40-54); HEMOGLOBIN 15.2 g/dL (13.3-17.7); LYMPHOCYTES # (AUTO) 1.1 10^3/uL (1.0-4.0); LYMPHOCYTES % (AUTO) 15 % (12-44); MEAN CORPUSCULAR HEMOGLOBIN 30 pg (25-34); MEAN CORPUSCULAR HGB CONC 35 g/dL (32-36); MEAN CORPUSCULAR VOLUME 85 fL (80-99); MEAN PLATELET VOLUME 10.1 fL (9.0-12.2); MONOCYTES # (AUTO) 0.7 10^3/uL (0.0-1.0); MONOCYTES % (AUTO) 9 % (0-12); NEUTROPHILS # (AUTO) 5.6 10^3/uL (1.8-7.8); NEUTROPHILS % (AUTO) 75 % (42-75); PLATELET COUNT 268 10^3/uL (130-400); WHITE BLOOD COUNT 7.5 10^3/uL (4.3-11.0)
[2022-03-28 10:56] LABS: ALBUMIN 3.9 GM/DL (3.2-4.5); POTASSIUM 4.1 MMOL/L (3.6-5.0)
[2022-03-28 10:58] LABS: CALCIUM 9.4 MG/DL (8.5-10.1)
[2022-03-28 10:59] LABS: TOTAL PROTEIN 7.3 GM/DL (6.4-8.2)
[2022-03-28 11:01] LABS: BILIRUBIN,TOTAL 1.7 MG/DL (0.1-1.0)
[2022-03-28 11:02] LABS: CREATININE SERUM 0.97 MG/DL (0.60-1.30)
[2022-03-28] MEDS ORDERED: LORazepam INJ 2 MG/ML (ATIVAN) VIAL IVP ONE (11:15)
[2022-03-28] MEDS ORDERED: HYDROmorphone 2 MG/ML VIAL (DILAUDID) IV ONE ×2 (11:45→14:00)
--- NOTE | 2022-03-28 13:14 | Diagnostic Imaging Report ---
PROCEDURE: CT head and CT cervical spine without contrast. TECHNIQUE: Multiple contiguous axial images were obtained through the brain and cervical spine without the use of intravenous contrast. Sagittal and coronal reformations through the cervical spine were then performed. Auto Exposure Controls were utilized during the CT exam to meet ALARA standards for radiation dose reduction. INDICATION: Head and neck pain. Trauma. FINDINGS: There are no CT findings of acute intracranial hemorrhage. There is age-related global volume loss. There are no findings of an abnormal extra-axial collection. There is no intracranial mass effect or shift. There is no hydrocephalus. There is no abnormal extra-axial collection. The basilar cisterns appear patent. Posterior fossa demonstrates no acute process. Mastoid air cells appear clear. The paranasal sinuses are clear. There is no air-fluid level. The orbital contents are unremarkable. Cervical spine demonstrates severe multilevel degenerative disc disease with prominent ventral cervical spine osteophytes. There is reversal of the cervical lordosis. There is normal alignment of the craniocervical junction with maintenance of appropriate relationships of the lateral masses of C1 and C2. There is a slight degenerative anterolisthesis of C7 on T1 due to facet arthropathy. The facets are normally aligned. There is no facet joint or disc space widening. The vertebral body heights are maintained without findings of an acute cervical spine fracture. Note is made of a remote healed right clavicular shaft fracture. The lung apices are clear. The soft tissues of the neck demonstrate no acute process. IMPRESSION: 1. Advanced age-related volume loss without CT evidence of hemorrhage or of an acute intracranial abnormality. There is no calvarial fracture 2. Advanced degenerative features with bulky endplate osteophytes throughout the cervical spine. There are no findings of traumatic malalignment or of an acute cervical spine fracture. 3. Remote right clavicle fracture. Dictated by: Dictated on workstation # [id number]
[2022-03-28] MEDS ORDERED: hydrALAZINE (APESOLINE) 20 MG/ML VIAL IV ONE (13:30)
[2022-03-28] MEDS ORDERED: HYDR-3820 PO (14:01)
[2022-03-28 14:14] VITALS: BP 158/89
== END 2022-03-28 14:19 | disposition home or self-care (01) ==
LOC: EDUNIT# 10:06 → ER 10:07
DX: R51.9 Headache, unspecified (principal); M54.2 Cervicalgia; E86.0 Dehydration; I10 Essential (primary) hypertension; Z96.0 Presence of urogenital implants; Z85.51 Personal history of malignant neoplasm of bladder; Z87.442 Personal history of urinary calculi; Z90.49 Acquired absence of other specified parts of digestive tract; Z79.899 Other long term (current) drug therapy
CPT/HCPCS: 36415; 70450; 72125; 80053; 82550; 85025

== ENCOUNTER → 2022-04-07 | Outpatient (CLI) | payer MEDICARE, OTHER ==
[~2022-04-07] MED LIST changes: +HYDR-3820 PO
--- NOTE | 2022-04-07 12:19 | Diagnostic Imaging Report ---
Indication: Bladder perforation. The study is performed for follow-up. Correlation is made with prior CT cystogram study from 03/26/2022. Axial imaging through the pelvis was performed without contrast and with the patient's indwelling Og catheter and and no instilled bladder contrast. Next, axial imaging through the pelvis was performed after 150 mL of water and Omnipaque contrast mixture is injected through the patient's Og catheter into the bladder. Postdrainage imaging was also performed. Precontrast imaging demonstrates complete decompression of the urinary bladder. Og catheter is in place. No free fluid in the intraperitoneal or extraperitoneal space is identified on today's study. Post contrast injection images demonstrate contrast throughout the urinary bladder. Previously noted defect along the right lateral bladder wall is no longer visualized. There is no evidence of extravasation of contrast from the bladder. Drainage films are unremarkable. IMPRESSION: Unremarkable CT cystogram study. Previously noted bladder wall perforation is no longer appreciated. There is no extravasation of contrast from the bladder on today's study. Dictated by: Dictated on workstation # [id number]
== END ==
LOC: RAD 11:45
PROVIDERS: ATTEND Urology
DX: N32.89 Other specified disorders of bladder (principal)
CPT/HCPCS: 72192

== ENCOUNTER → 2023-03-24 | Outpatient (CLI) | payer MEDICARE, OTHER | LOC: LAB 13:29 | PROVIDERS: ATTEND Internal Medicine | DX: I10 Essential (primary) hypertension (principal); R07.9 Chest pain, unspecified | CPT/HCPCS: 36415; 84484 ==

== ENCOUNTER 2023-06-19 21:28 | Inpatient (IN) | payer MEDICARE, OTHER ==
[~2023-06-19] VITALS: Ht 182.9 cm; Wt 106.3 kg
[2023-06-19 21:42] LABS: BASOPHILS % (AUTO) 1 % (0-10); EOSINOPHILS # (AUTO) 0.5 10^3/uL (0.0-0.3); EOSINOPHILS % (AUTO) 8 % (0-10); HEMATOCRIT 46 % (40-54); HEMOGLOBIN 15.6 g/dL (13.3-17.7); LYMPHOCYTES % (AUTO) 48 % (12-44); MEAN CORPUSCULAR HEMOGLOBIN 30 pg (25-34); MEAN CORPUSCULAR HGB CONC 34 g/dL (32-36); MEAN CORPUSCULAR VOLUME 88 fL (80-99); MEAN PLATELET VOLUME 10.3 fL (9.0-12.2); MONOCYTES # (AUTO) 0.6 10^3/uL (0.0-1.0); MONOCYTES % (AUTO) 9 % (0-12); NEUTROPHILS # (AUTO) 2.2 10^3/uL (1.8-7.8); NEUTROPHILS % (AUTO) 35 % (42-75); PLATELET COUNT 246 10^3/uL (130-400); WHITE BLOOD COUNT 6.2 10^3/uL (4.3-11.0)
[2023-06-19] MEDS ORDERED: LIDOCAINE UROJET 2% GEL 10 ML PKG TOP ONE (21:45)
--- NOTE | 2023-06-19 21:47 | ED Neurological Problem ---
General Chief Complaint: Neuro-Stroke Like Symptoms Stated Complaint: STROKE Nursing Triage Note: PATIENT BROUGHT BY PRIVATE VEHICLE. STATES PATIENT SLEEPING ALL DAY. STATES LAST KNOWN WELL TIME WAS 1300 TODAY. STATES PATIENT WOKE UP AROUND 1930 TO EAT DINNER STATES RT HAND NOT WORKING, STATES PATIENT UNABLE TO USE SPOON. Source: patient, spouse History of Present Illness Date Seen by Provider: Jun 19, 2023 Time Seen by Provider: 21:28 Initial Comments PT ARRIVES VIA POV FROM HOME WITH AND CHILDREN LAST KNOW WELL TIME WAS 1300, WHEN PT LAID DOWN FOR A NAP PT WOKE UP AT 1930TO HAVE DINNER, AND WHEN HE WOKE UP HE WAS HAVING DIFFICULTY TALKING AND SWALLOWING, DIFFICULTY USING HIS RIGHT HAND AND ARM--STATES HE COULDN'T GET HIS COFFEE CUP TO HIS MOUTH AND HE SPILLED COFFEE ALL OVER HIMSELF ( DID NOT BURN HIMSELF ), AND DIFFICULTY WALKING--STATES HE HAS TO DRAG HIS RIGHT LEG. HE DENIES ANY NUMBNESS OR TINGLING ANYWHERE HE DENIES HEADACHE DENIES ANY VISION CHANGES--STATES HIS RIGHT EYE ALWAYS HAS POOR VISION, AND IS NO DIFFERENT THAN NORMAL NO DIZZINESS OR SYNCOPE NO PALPITATIONS NO CHEST PAIN OR SHORTNESS OF BREATH NO NAUSEA/VOMITING NO LOSS OF BOWEL OR BLADDER CONTROL NO HISTORY OF SIMILAR PT HAS CHRONIC BACK PAIN---HAS 3 FENTANYL PATCHES ON HIS BACK ( STATES ONLY 1 OF THEM IS GOOD NOW--THE OTHERS HAVE WORN OFF, BUT JUST DID NOT REMOVE THEM) HE TOOK HIS MORNING MEDICATIONS, BUT NOT HIS EVENING MEDICATIONS PT IS NOT ON ASPIRIN OR BLOOD THINNERS PCP: DR. CHAN Allergies and Home Medications Allergies Coded Allergies: morphine (Unverified Allergy, Severe, 03/19/22) HALLUCINATIONS Patient Home Medication List Home Medication List Reviewed: Yes Ciprofloxacin HCl (Cipro) 250 Mg Tablet, 250 MG PO BID Prescribed by: JACQUELINE LARES on 03/24/22 1015 Escitalopram Oxalate (Lexapro) 20 Mg Tablet, 20 MG PO BID, (Reported) Entered as Reported by: COLLEEN COLBY on 12/10/14 1143 Fentanyl (Fentanyl Patch 100 MCG) 100 Mcg/Hour Patch.td72, 100 MCG TD Q48H, (Reported) Entered as Reported by: JOSH SAMAYOA on 03/19/22 1749 Hydrocodone/Acetaminophen (Hydrocodone-Acetamin 10-325 mg) 10 Mg-325 Mg Tablet, 1 EACH PO Q6H PRN for PAIN-MODERATE (5-7) Prescribed by: MARIXA ALVARADO on 03/28/22 1401 Omeprazole (Omeprazole) 40 Mg Capsule.dr, 40 MG PO DAILY, (Reported) Entered as Reported by: COLLEEN COLBY on 12/10/14 1143 Phenazopyridine HCl (Pyridium) 200 Mg Tablet, 1 TAB PO TID PRN for PAIN-MILD (1- 4) Prescribed by: JACQUELINE LARES on 03/24/22 1015 Pregabalin (Lyrica) 150 Mg Capsule, 300 MG PO BID, (Reported) Entered as Reported by: COLLEEN COLBY on 12/10/14 114 Silodosin (Silodosin) 8 Mg Capsule, 8 MG PO HS, (Reported) Entered as Reported by: JOSH SAMAYOA on 03/19/22 174 Testosterone (Testosterone) Unknown Strength Gel., Unknown Dose TD, (Reported) Entered as Reported by: JOSH SAMAYOA on 03/19/22 174 Tramadol Hcl (Tramadol Hcl) 100 Mg Tbmp.24hr, 100 MG PO Q6H PRN for PAIN, (Reported) Entered as Reported by: COLLEEN COLBY on 12/10/14 1143 Review of Systems Review of Systems Constitutional: no symptoms reported Eyes: See HPI Ears, Nose, Mouth, Throat: no symptoms reported Respiratory: no symptoms reported Cardiovascular: no symptoms reported Gastrointestinal: no symptoms reported Genitourinary: no symptoms reported Musculoskeletal: no symptoms reported Skin: no symptoms reported Psychiatric/Neurological: See HPI; Denies Cognitive Dysfunction, Denies Headache, Denies Numbness, Denies Tingling; Weakness (RIGHT SIDE) Endocrine: No Symptoms Reported Hematologic/Lymphatic: No Symptoms Reported Past Kbpazmn-Yadcxq-Yjxokv Hx Patient Social History Tobacco Use?: No Substance use?: No Alcohol Use?: No Immunizations Up To Date First/Initial COVID19 Vaccinat: 2020 Second COVID19 Vaccination Rohan: 2020 Third COVID19 Vaccination Date: 2020 Seasonal Allergies Seasonal Allergies: Yes Past Medical History Surgery/Hospitalization HX: PMH: KIDNEY STONES, ANXIETY, CHRONIC PAIN SX: APPY, GALLBLADDER, HERNIA REPAIR Surgeries: Yes (kidney stone, 2abd surgeries for adhesion, HERNIA REPAIR;BLADDER TUMOR) Abdominal, Appendectomy, Bladder Surgery, Cardiac, Gallbladder, Renal Respiratory: No Currently Using CPAP: No Currently Using BIPAP: No Cardiac: Yes High Cholesterol Neurological: No Reproductive Disorders: No Genitourinary: Yes (BLADDER TUMOR) Kidney Stones Gastrointestinal: Yes Gastroesophageal Reflux, Diverticulosis Musculoskeletal: Yes (history of crushing injuries to shoulders) Chronic Back Pain Endocrine: No HEENT: Yes (READERS, DENTURES) Cancer: Yes Bladder Did You Recieve Any Treatments: Yes What Type of Treatment Did You: Surgical Intervention BLADDER TUMOR REMOVAL 03/2022 Psychosocial: Yes Sleep Difficulties, Anxiety, Depression Blood Disorders: Yes (had increased hgb and had therapeutic phlebotomy) Adverse Reaction/Blood Tranf: No Family Medical History SOCIAL HISTORY: -SMOKING--DENIES USE -ETOH--DENIES USE -DRUGS--DENIES USE PAST SURGICAL HISTORY: -RESECTION OF BLADDER TUMOR 03/[address] HARMON. COMPLICATED BY PERFORATION TO BLADDER--TREATED NON-SURGICALLY -APPENDECTOMY -CHOLECYSTECTOMY -OPEN KIDNEY STONE REMOVAL -HERNIA REPAIR -CARDIAC CATH 11/[address] 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 EF 55-60% Physical Exam Vital Signs Vital Signs - First Documented 06/19/23 21:28 Temp 36.6 Pulse 76 Resp 16 B/P (MAP) 205/117 (146) Pulse Ox 96 O2 Delivery Nasal Cannula O2 Flow Rate 2.00 Capillary Refill : Height, Weight, BMI Height: 6'0.00" Weight: 225lbs. oz. 102.975521ji; 27.00 BMI Method:Stated General Appearance: WD/WN, no apparent distress, other (VERY TALKATIVE. SPEECH IS SOMEWHAT MUMBLED) HEENT: PERRL/EOMI, normal ENT inspection, TMs normal, pharynx normal, other (UPPER DENTURES IN PLACE. NO LOWER DENTURES) Neck: non-tender, full range of motion, supple, normal inspection Respiratory: normal breath sounds, no respiratory distress, no accessory muscle use Cardiovascular: normal peripheral pulses, regular rate, rhythm, no edema, no JVD, no murmur Peripheral Pulses: 2+ Dorsalis Pedis (R), 2+ Left Dors-Pedis (L), 2+ Radial Pulses (R), 2+ Radial Pulses (L) Gastrointestinal: normal bowel sounds, non tender, soft, hernia (LARGE VENTRAL HERNIA PRESENT) Back: no CVA tenderness Extremities: normal range of motion, non-tender, normal inspection, no pedal edema, no calf tenderness, normal capillary refill Neurologic/Psychiatric: conformal pad former II-XII nml as tested, alert, normal mood/affect, oriented x 3, abnormal cerebellar tests, aphasia, facial droop, motor weakness Crainal Nerves: normal hearing, PERRL Coordination/Gait: ABN nose to finger (R) Motor/Sensory: no sensory deficit, weak motor strength RUE, weak motor strength RLE Skin: normal color, warm/dry Stroke NIH Stroke Scale Assessment Select: Initial Level of Consciousness: 0=Alert (0), Level of Consciousness-Questions: 0=Answers both month/age (0), LOC Commands: 0=Performs both tasks (0), Gaze: Normal (0), Visual Isaac: 0=No visual loss (0), Facial Movement (Facial Paresis): 1=Minor paralysis (1), Motor Function- Arms Right: 0=No drift (0), Motor Function-Arms Left: 0=No drift (0), Motor Function-Legs Right: 1=Drift (1), Motor Function-Legs Left: 0=No drift (0), Limb Ataxia: 2=Present in two limbs (2), Sensory: 0=Normal:no loss (0), Best Language: 0=No aphasia (0), Dysarthria: 1=Mild to moderate loss (1), Extinction & Inattention: 0=No abnormality (0), Total: 5 Stroke Thrombolytic Exclusion Age 18 or Over: Yes Acute intenal hemorrhage: No History of CVA: No Uncontrolled Coagulation Defec: No Intracranial Hemorrhage: No Severe Hypertension: Yes GI or Bleed: No Subarachnoid Hemorrhage: No Intracranial Neoplasm/Aneurysm: No Oral Anticoagulants: No Surgery or Trauma: No Puncture of Non-Compressible V: No Recent CPR: No Diabetic Hemorrhagic Retinopat: No Organ Biopsy: No Recent Obstetric Delivery: No Glucose: No Significant Hepatic Dysfunctio: No NIH Stoke Scale >22: No Bacterial Endocarditis: No Pericarditis: No Improving Symptoms: No Platelets: No TPA Contraindication: No IV - TPa Received IV - TPa Procedure Performed?: No (OUTSIDE TIME FRAME FOR TPA) Progress/Results/Core Measures Results/Orders Lab Results Laboratory Tests Test 06/19/23 21:33 8/6/23 22:35 Range/Units White Blood Count 6.2 4.3-11.0 10^3/uL Red Blood Count 5.19 4.30-5.52 10^6/uL Hemoglobin 15.6 13.3-17.7 g/dL Hematocrit 46 40-54 % Mean Corpuscular Volume 88 80-99 fL Mean Corpuscular Hemoglobin 30 25-34 pg Mean Corpuscular Hemoglobin Concent 34 32-36 g/dL Red Cell Distribution Width 12.7 10.0-14.5 % Platelet Count 246 130-400 10^3/uL Mean Platelet Volume 10.3 9.0-12.2 fL Immature Granulocyte % (Auto) 0 % Neutrophils (%) (Auto) 35 L 42-75 % Lymphocytes (%) (Auto) 48 H 12-44 % Monocytes (%) (Auto) 9 0-12 % Eosinophils (%) (Auto) 8 0-10 % Basophils (%) (Auto) 1 0-10 % Neutrophils # (Auto) 2.2 1.8-7.8 10^3/uL Lymphocytes # (Auto) 3.0 1.0-4.0 10^3/uL Monocytes # (Auto) 0.6 0.0-1.0 10^3/uL Eosinophils # (Auto) 0.5 H 0.0-0.3 10^3/uL Basophils # (Auto) 0.0 0.0-0.1 10^3/uL Immature Granulocyte # (Auto) 0.0 0.0-0.1 10^3/uL Prothrombin Time 12.6 12.2-14.7 SEC INR Comment 0.9 0.8-1.4 Activated Partial Thromboplast Time 25 24-35 SEC D-Dimer 0.65 H 0.00-0.49 UG/ML Sodium Level 137 135-145 MMOL/L Potassium Level 4.2 3.6-5.0 MMOL/L Chloride Level 103 98-107 MMOL/L Carbon Dioxide Level 21 21-32 MMOL/L Anion Gap 13 5-14 MMOL/L Blood Urea Nitrogen 14 7-18 MG/DL Creatinine 1.35 H 0.60-1.30 MG/DL Estimat Glomerular Filtration Rate 51 BUN/Creatinine Ratio 10 Glucose Level 194 H 70-105 MG/DL Calcium Level 9.0 8.5-10.1 MG/DL Corrected Calcium 9.2 8.5-10.1 MG/DL Magnesium Level 2.1 1.6-2.4 MG/DL Total Bilirubin 0.6 0.1-1.0 MG/DL Aspartate Amino Transf (AST/SGOT) 36 H 5-34 U/L Alanine Aminotransferase (ALT/SGPT) 25 0-55 U/L Alkaline Phosphatase 133 40-136 U/L Troponin I < 0.028 <0.028 NG/ML Total Protein 7.1 6.4-8.2 GM/DL Albumin 3.7 3.2-4.5 GM/DL [facility] [place] Testing 3.13 0.35-4.94 UIU/ML Serum Alcohol < 10 <10 MG/DL Influenza Type A (RT-PCR) Not Detected Not Detecte Influenza Type B (RT-PCR) Not Detected Not Detecte SARS-CoV-2 RNA (RT-PCR) Not Detected Not Detecte My Orders Orders - BELIA MENDOZA DO Cbc With Automated Diff (06/19/23 21:32) Protime With Inr (06/19/23 21:32) Partial Thromboplastin Time (06/19/23 21:32) Comprehensive Metabolic Panel (06/19/23 21:32) Fibrin Degradation Products (06/19/23 21:32) Troponin I [place] (06/19/23 21:32) Chest 1 View, Ap/Pa Only (06/19/23 21:32) Ekg Tracing (06/19/23 21:32) Nothing By Mouth (06/20/23 Breakfast) Ed Iv/Invasive Line Start (06/19/23 21:32) Ed Iv/Invasive Line Start (06/19/23 21:32) Ct Head Wo-R/O Stroke (06/19/23 21:32) O2 (06/19/23 21:32) Monitor-Rhythm Ecg Trace Only (06/19/23 21:32) Dysphagia Screening Tool [id number] (06/19/23 21:32) Lipid Panel (06/20/23 06:00) Lidocaine 2% (Urojet) (Xylocaine Urojet) (06/19/23 21:45) Alcohol (06/19/23 21:32) Magnesium (06/19/23 21:32) Thyroid Analyzer (06/19/23 21:32) Covid 19 Inhouse Test (06/19/23 21:32) Influenza A And B By Pcr (06/19/23 21:32) Labetalol Injection (Normodyne Injection (06/19/23 22:00) Fentanyl Inj (Sublimaze Injection) (06/19/23 22:00) Ct Angio Head/Neck (06/19/23 22:06) Aspirin Chewable Tablet (Aspirin Chewabl (06/19/23 23:00) Clopidogrel Tablet (Clopidogrel Tablet) (06/19/23 23:00) Iohexol Injection (Omnipaque 350 Mg/Ml 1 (06/19/23 23:15) Received Contrast (Hold Metformin- Contr (06/19/23 23:15) Ns (Ivpb) 100 Ml (Sodium Chloride 0.9% 1 (06/19/23 23:15) Medications Given in ED Current Medications Medications Dose Ordered Sig/Adam Route Start Time Stop Time Status Last Admin Dose Admin Aspirin 81 mg ONCE ONCE PO 06/19/23 23:00 06/19/23 23:01 DC 06/19/23 23:19 81 MG Clopidogrel Bisulfate 300 mg ONCE ONCE PO 06/19/23 23:00 06/19/23 23:01 DC 06/19/23 23:19 300 MG Fentanyl Citrate 50 mcg ONCE ONCE IVP 06/19/23 22:00 06/19/23 22:01 DC 06/19/23 22:00 50 MCG Iohexol 100 ml ONCE ONCE IV 06/19/23 23:15 06/19/23 23:16 DC 06/19/23 23:05 75 ML Labetalol HCl 20 mg ONCE ONCE IV 06/19/23 22:00 06/19/23 22:01 DC 06/19/23 22:41 20 MG Sodium Chloride 100 ml ONCE ONCE IV 06/19/23 23:15 06/19/23 23:16 DC 06/19/23 23:05 80 ML Vital Signs/I&O 06/19/23 06/19/23 06/19/23 06/19/23 21:28 21:28 23:08 23:37 Temp 36.6 Pulse 76 71 75 Resp 16 16 B/P (MAP) 205/117 (146) 150/89 Pulse Ox 96 94 94 O2 Delivery Nasal Cannula Room Air O2 Flow Rate 2.00 FSBG Bedside Testing Finger Stick Blood Glucose: 187 Blood Glucose Action Taken: DR MENDOZA NOTIFIED Progress Progress Note : Progress Note STROKE ACTIVATION INITIATED ON PT'S ARRIVAL NIH ON ARRIVAL IS 5, AND THIS WAS UNCHANGED DURING ER COURSE VITALS ON ADMIT: TEMP 36.6, HR 76, BP 215/124, RR 15, O2 SAT 97-93% ON ROOM AIR. GIVEN: -LABETALOL -ASPIRIN -PLAVIX -FENTANYL FOR PT'S CHRONIC BACK PAIN LABS: -CBC IS NORMAL -CMP FAIRLY UNREMARKABLE, CR SLIGHTLY ELEVATED AT 1.35, GLUCOSE 194 -COAGULATION STUDIES NORMAL. D-DIMER 0.65 -UA CLEAR -ETOH NEGATIVE -COVID AND FLU NEGATIVE EKG WITH FIRST DEGREE AV-BLOCK, OTHERWISE NORMAL CXR IS NORMAL CT HEAD PLAIN AND CT ANGIOGRAM HEAD/NECK ARE UNREMARKABLE FOR ACUTE PROCESS NO DETERIORATION IN PT'S CONDITION DURING ER STAY BP DOWN TO 150/89, HR REMAINED IN 70'S, O2 SATS IN UPPER 90'S ON O2 AT 2L/NC DISCUSSED TEST RESULTS, NEED FOR ADMIT AND PT AND FAMILY AGREE TO PLAN. REVIEWED PRIOR RECORDS, INCLUDING ER VISITS, ADMITS/H&P'S/DISCHARGE SUMMARIES, TESTS/PROCEDURES Initial ECG Impression Date: Jun 19, 2023 Initial ECG Impression Time: 22:34 Initial ECG Rate: 81 Initial ECG Rhythm: Normal Sinus Initial ECG Intervals WA 269 QRS 93 QT/QTC 395/432 Initial ECG Impression: 1st Degree AV Block Initial ECG Comparisson: No Previous ECG Available Comment INTERPRETED BY ME Diagnostic Imaging Comments CXR--NO ACUTE PROCESS, PENDING RADIOLOGIST REPORT CT HEAD PLAIN--PER RADIOLOGIST REPORT AT 2205 There is generalized atrophy. There are no masses or hemorrhages. There are no extra-axial fluid collections. IMPRESSION: Senescent changes of the brain. There is no CT evidence for an acute infarct. No change compared to exam dated 03/28/2022. CT ANGIOGRAM HEAD/NECK--PER [facility] RADIOLOGIST VIA PHONE AT 2231 AND TYPED REPORT VIA FAX AT [phone] -NO LARGE VESSEL OCCLUSION OR ANEURYSM OR CRITICAL STENOSIS Reviewed: Reviewed by Me Departure Communication (Admissions) 2149--SPOKE WITH DR. SPENCER, HOSPITALIST, AND DISCUSSED PT. IF PT DOES NOT NEED TO BE TRANSFERRED TO HIGHER LEVEL OF CARE BASED ON CT FINDINGS, HE WILL ACCEPT THE PATIENT. 2239--CALLED [facility]. IMAGES CLOUDED TO THEM. [facility]WOOD[facility] HE ADVISES THAT PT IS NOT TPA CANDIDATE, HE HAS OUTSIDE THE TREATMENT WINDOW FOR THROMBOLYTICS. ADDITIONALLY, THERE IS NO LARGE VESSEL OCCLUSION OR CRITICAL STENOSIS, AND THERE IS NO INDICATION FOR INTERVENTION. EMERGENT MRI IS NOT NECESSARY AT THIS TIME. HE ADVISES 81 MG OF ASPIRIN, LOADING DOSE OF PLAVIX 300 MG AND THEN 75 MG DAILY AND CONTROL OF HTN. Impression Primary Impression: ACUTE ISCHEMIC CVA Additional Impression: Hypertensive emergency Disposition: ADMITTED INPATIENT Condition: Stable Admissions Decision to Admit Reason: Admit from ER (General) Decision to Admit/Date: Jun 19, 2023 Time/Decision to Admit Time: 22:40 Departure-Patient Inst. Referrals: CINDA CHAN MD (PCP/Family) Primary Care Physician BELIA MENDOZA DO Jun 19, 2023 21:47
[2023-06-19 21:50] LABS: INR 0.9 (0.8-1.4); PROTHROMBIN TIME PATIENT 12.6 SEC (12.2-14.7)
[2023-06-19 21:53] LABS: FIBRIN DEGRADATION PRODUCTS 0.65 UG/ML (0.00-0.49)
--- NOTE | 2023-06-19 21:56 | Diagnostic Imaging Report ---
PROCEDURE: CT head wo r/o stroke. TECHNIQUE: Multiple contiguous axial images were obtained through the brain without the use of intravenous contrast. Auto Exposure Controls were utilized during the CT exam to meet ALARA standards for radiation dose reduction. INDICATION: Acute neurological deficit There is generalized atrophy. There are no masses or hemorrhages. There are no extra-axial fluid collections. IMPRESSION: Senescent changes of the brain. There is no CT evidence for an acute infarct. No change compared to exam dated 03/28/2022. Dictated by: Dictated on workstation # [id number]
[2023-06-19 21:58] LABS: ALBUMIN 3.7 GM/DL (3.2-4.5)
[2023-06-19 21:59] LABS: CHLORIDE 103 MMOL/L (98-107); CREATININE SERUM 1.35 MG/DL (0.60-1.30); GFR ESTIMATED 51; POTASSIUM 4.2 MMOL/L (3.6-5.0); SODIUM 137 MMOL/L (135-145)
[2023-06-19] MEDS ORDERED: LABETALOL 5 mg/ml 4 ML SINGLE DOSE SYRINGE IV ONE (22:00)
[2023-06-19] MEDS ORDERED: fentaNYL INJECTION 100 MCG/2 ML VIAL IVP ONE (22:00)
[2023-06-19 22:01] LABS: GLUCOSE 194 MG/DL (70-105); TOTAL PROTEIN 7.1 GM/DL (6.4-8.2)
[2023-06-19 22:02] LABS: CARBON DIOXIDE 21 MMOL/L (21-32)
[2023-06-19 22:03] LABS: BILIRUBIN,TOTAL 0.6 MG/DL (0.1-1.0)
[2023-06-19 22:05] LABS: ALKALINE PHOSPHATASE 133 U/L (40-136)
[2023-06-19 22:06] LABS: BUN/CREATININE RATIO 10
[2023-06-19 22:07] LABS: MAGNESIUM 2.1 MG/DL (1.6-2.4)
[2023-06-19 22:08] LABS: ALANINE AMINOTRANSFERASE 25 U/L (0-55)
[2023-06-19 22:29] LABS: TSH (THYROID ANALYZER) 3.13 UIU/ML (0.35-4.94)
[2023-06-19] MEDS ORDERED: ASPIRIN 81 MG CHEWABLE TABLET PO ONE (23:00)
[2023-06-19] MEDS ORDERED: CLOPIDOGREL 300 MG TABLET PO ONE (23:00)
[2023-06-19 23:08] VITALS: BP 150/89
[2023-06-19] MEDS ORDERED: HOLD METFORMIN - RECEIVED CONTRAST 20 ML VIAL IV SCH (23:15)
[2023-06-19] MEDS ORDERED: NS 100 ML (IVPB) BAG IV ONE (23:15)
[2023-06-19] MEDS ORDERED: IOHEXOL 350 MG/ML 100 ML (OMNIPAQUE 350) VIAL IV ONE (23:15)
[2023-06-20] MEDS ORDERED: NS IV 500 ML 500 ML IV PRN
[2023-06-20 01:06] LABS: BILIRUBIN,URINE NEGATIVE (NEGATIVE); CLARITY,URINE CLEAR; COLOR,URINE YELLOW; GLUCOSE, URINE (UA) NEGATIVE (NEGATIVE); KETONES,URINE NEGATIVE (NEGATIVE); NITRITE,URINE NEGATIVE (NEGATIVE); PH,URINE 6.5 (5-9); PROTEIN,URINE NEGATIVE (NEGATIVE)
[2023-06-20 01:07] LABS: BACTERIA,URINE NEGATIVE /HPF; HYALINE CASTS, URINE RARE /LPF; LEUKOCYTE ESTERASE ,URINE NEGATIVE (NEGATIVE); WBC,URINE RARE /HPF
[2023-06-20] MEDS: D5 1/2NS + KCL 20 MEQ/L 1000ML 1,000 ML IV SCH ×3 (02:02→17:43)
[2023-06-20 05:09] LABS: BASOPHILS % (AUTO) 1 % (0-10); EOSINOPHILS # (AUTO) 0.3 10^3/uL (0.0-0.3); EOSINOPHILS % (AUTO) 5 % (0-10); HEMATOCRIT 44 % (40-54); HEMOGLOBIN 14.9 g/dL (13.3-17.7); LYMPHOCYTES # (AUTO) 2.8 10^3/uL (1.0-4.0); LYMPHOCYTES % (AUTO) 43 % (12-44); MEAN CORPUSCULAR HEMOGLOBIN 30 pg (25-34); MEAN CORPUSCULAR HGB CONC 34 g/dL (32-36); MEAN CORPUSCULAR VOLUME 87 fL (80-99); MEAN PLATELET VOLUME 10.6 fL (9.0-12.2); MONOCYTES # (AUTO) 0.7 10^3/uL (0.0-1.0); MONOCYTES % (AUTO) 11 % (0-12); NEUTROPHILS # (AUTO) 2.7 10^3/uL (1.8-7.8); NEUTROPHILS % (AUTO) 41 % (42-75); PLATELET COUNT 233 10^3/uL (130-400); WHITE BLOOD COUNT 6.5 10^3/uL (4.3-11.0)
[2023-06-20] MEDS ORDERED: hydrALAZINE INJECTION 20 MG/ML VIAL IV ONE ×2 (05:15→15:30)
[2023-06-20 05:38] LABS: ALBUMIN 3.5 GM/DL (3.2-4.5); BILIRUBIN,TOTAL 0.5 MG/DL (0.1-1.0); CALCIUM 8.8 MG/DL (8.5-10.1); CREATININE SERUM 1.1 MG/DL (0.60-1.30); PHOSPHORUS 3.5 MG/DL (2.3-4.7); POTASSIUM 4.1 MMOL/L (3.6-5.0); TOTAL PROTEIN 6.4 GM/DL (6.4-8.2)
[2023-06-20] MEDS ORDERED: POTASSIUM CHLORIDE 20 MEQ TABLET PO SCH (06:00)
[2023-06-20] MEDS ORDERED: MAGNESIUM 1 GM/100 ML IVPB 100 ML IV SCH (06:00)
[2023-06-20] MEDS ORDERED: POTASSIUM CL 10MEQ/50ML IVPB 50 ML IV SCH (06:00)
--- NOTE | 2023-06-20 08:06 | Diagnostic Imaging Report ---
INDICATION: Strokelike symptoms, neural deficit. COMPARISON: 03/26/2022 TECHNIQUE: Single frontal radiograph of the chest dated 06/19/2023 FINDINGS: The cardiac silhouette mildly enlarged. No significant pulmonary vascular congestion. Low lung volumes with mild left greater than right bibasilar interstitial opacities. No significant pleural effusion. No pneumothorax. Chronic right clavicular fracture. No acute osseous abnormality. IMPRESSION: Low lung volumes with mild left greater than right bibasilar atelectasis and/or pneumonitis. Mild cardiomegaly without pulmonary vascular congestion. Dictated by: Dictated on workstation # [id number]
--- NOTE | 2023-06-20 08:18 | Occupational Therapy Eval ---
OT Evaluation-General/PLF Medical Diagnosis Admission Date Jun 19, 2023 at 23:40 Medical Diagnosis: stroke Onset Date: Jun 19, 2023 Therapy Diagnosis Therapy Diagnosis: right side weakness Height/Weight Height (Feet): 6 Height (Inches): 0.00 Weight (Pounds): 225 Precautions Precautions/Isolations: Fall Prevention, Standard Precautions Safety Interventions: Bed Exit Alarm (chair alarm) Referral Referral Reason: Activity Tolerance, Self Care, Evaluation/Treatment, Strengthening/ROM Medical History Additional Medical History PT ARRIVES VIA POV FROM HOME WITH AND CHILDREN LAST KNOW WELL TIME WAS 1300, WHEN PT LAID DOWN FOR A NAP PT WOKE UP AT 1930TO HAVE DINNER, AND WHEN HE WOKE UP HE WAS HAVING DIFFICULTY TALKING AND SWALLOWING, DIFFICULTY USING HIS RIGHT HAND AND ARM--STATES HE COULDN'T GET HIS COFFEE CUP TO HIS MOUTH AND HE SPILLED COFFEE ALL OVER HIMSELF ( DID NOT BURN HIMSELF ), AND DIFFICULTY WALKING--STATES HE HAS TO DRAG HIS RIGHT LEG Current History chronic back pain, anxiety, cancer, kidney stones GERD, cardiac stents Reviewed History: Yes Social History Home: Single Level Current Living Status: Spouse Entry Into Home: Stairs With Railing Steps Into Home: 2 ADL-Prior Level of Function SCALE: Activities may be completed with or without assistive devices. 9-Vtfcgejkkp-xkbxowo completes the activity by him/herself with no assistance from a helper. 5-Set-up or Clean-up Assistance-helper sets up or cleans up; patient completes activity. [place] assists only prior to or following the activity. 4-Supervision or Touching Assistance-helper provides verbal cues and/or touching/steadying and/or contact guard assistance as patient completes ac tivity. Assistance may be provided throughout the activity or intermittently. 3-Partial/Moderate Assistance-helper does LESS THAN HALF the effort. [place] lifts, holds or supports trunk or limbs, but provides less than half the effort. 2-Substantial/Maximal Assistance-helper does MORE THAN HALF the effort. [place] lifts or holds trunk or limbs and provides more than half the effort. 9-Qyaerlxvw-nuexoy does ALL the effort. Patient does none of the effort to complete the activity. Or, the assistance of 2 or more helpers is required for the patient to complete the activity. If activity was not attempted, code reason: 7-Patient Refused. 9-Not Applicable-not attempted and the patient did not perform the activity before the current illness, exacerbation or injury. 10-Not Attempted due to Environmental Limitations-(lack of equipment, weather restraints, etc.). 88-Not Attempted due to Medical Conditions or Safety Concerns. Self Care: Needed Some Help (all LB dressing) Functional Cognition: Independent DME/Equipment: Bath Chair, Grab Bars, Shower DME/Equipment Comments uses [employer] at home Occupation: [address] Self: Yes OT Current Status Subjective Resting in bed agreeable to OT Pain Numeric Pain Scale: 0-No Pain Mental Status/Objective Patient Orientation: Person, Place, Situation Attachments: IV, Oxygen, SCD's, Telemetry Current Glasses/Contacts: Yes (reADING) Hearing Aids: No (IS HAARD OF HEARING) Dentures/Partials: Yes (UPPER) Upper Extremity ROM BUE ROM WFLS Upper Extremity Coordination FAIR+, SLOW RESPONSIVNESS Upper Extremity Sensation INTACT Upper Extremity Strength LUE +4/5, RUE -4/5. PERSONAL DEVELOPMENT COACH LEFT 4/5, RIGHT 4/5 ADL-Treatment Eating (QC): 88 (NOT TESTED) Oral Hygiene (QC): 5 Shower/Bathe Self (QC): 88 Upper Body Dressing (QC): 4 Lower Body Dressing (QC): 3 On/Off Footwear (QC): 1 (LIFTS FOOT OFF FLOOR-plof) Toileting Hygiene (QC): 3 Education OT Patient Education: Correct positioning, Modified ADL techniques, Progress toward Goal/Update tx plan, Purpose of tx/functional activities, Reviewed precautions, Rehab process, Safety issues, Transfer techniques Teaching Recipient: Patient Teaching Methods: Demonstration, Discussion Response to Teaching: Verbalize Understanding OT Director Of Archives Goals Director Of Archives Goals Eating (QC): 6 Oral Hygiene (QC): 6 Toileting Hygiene (QC): 5 Shower/Bathe Self (QC): 4 Upper Body Dressing (QC): 5 Lower Body Dressing (QC): 4 1=Demonstrate adherence to instructed precautions during ADL tasks. 2=Patient will verbalize/demonstrate understanding of assistive devices/modifications for ADL. 3=Patient will improve strength/tolerance for activity to enable patient to perform ADL's. OT Education/Plan Problem List/Assessment Assessment: Decreased Activ Tolerance, Decreased UE Strength, Impaired Self- Care Skills Discharge Recommendations Plan/Recommendations: Continue POC Treatment Plan/Plan of Care Treatment,Training & Education: Yes Patient would benefit from OT for education, treatment and training to promote independence in ADL's, mobility, safety and/or upper extremity function for ADL's. Plan of Care: ADL Retraining, Cognitive Retraining, Concurrent Therapy, Functional Mobility, Group Exercise/Act as Ind, UE Funct Exercise/Act, UE Neuromus Re-Ed/Coord Treatment Duration: Jun 20, 2023 Frequency: 3 times per week (3-5 TIMES PER WEEK) Estimated Hrs Per Day: .25 hour per day Agreement: Yes Rehab Potential: Good Time Start Time: 08:00 Stop Time: 08:15 DATE: Jun 20, 2023 Total Time Billed (hr/min): 15 Billed Treatment Time EVM 15 MIN HAKEEM POWER OT Jun 20, 2023 08:18
--- NOTE | 2023-06-20 08:19 | Diagnostic Imaging Report ---
PROCEDURE: CT angiography of the head and CT angiography of the neck with and without contrast. TECHNIQUE: Contiguous noncontrast images were obtained from the skull base through the vertex. After intravenous contrast administration, helical CT angiography of the neck was performed. Source data was reformatted into 3D MIP projections. Delayed post contrast acquisition was also obtained. Auto Exposure Controls were utilized during the CT exam to meet ALARA standards for radiation dose reduction. INDICATION: Strokelike symptoms. Focal neurologic deficit. Comparison: CT head performed earlier the same day. FINDINGS: CTA Neck: The visualized portions of the aortic arch demonstrate no evidence of aneurysm or dissection. There is conventional branching pattern of the great vessels of the aorta. The brachiocephalic artery is normal in course and caliber. The right and left common carotid origins are unremarkable. The origin of the left subclavian artery is patent. The common carotid arteries and internal carotid arteries demonstrate a tortuous course. No stenosis or dissection in the carotid systems. The external carotid arteries are patent and unremarkable. The vertebral arteries are codominant. The origin of the right vertebral artery is seen and is unremarkable. The origin of the left vertebral artery is seen and is unremarkable. There is no focal stenosis seen within the neck. There is no dissection. The vertebral arteries are well visualized to up to the level of the basilar artery. The osseous structures of the cervical spine are unremarkable. Dependent opacities are seen in the included right lung. CTA brain: Minimal atherosclerotic plaque is seen in the [place] of the intracranial portion of the bilateral ICA. No stenosis is seen in the bilateral anterior, middle, and posterior cerebral arteries. No evidence of aneurysm the [place]. In the posterior circulation, both of the vertebral arteries demonstrate normal opacification. Both the right and left PICA arteries are identified. The basilar artery is normal in course and caliber. The terminal branch vessels including the superior cerebellar arteries unremarkable. IMPRESSION: 1. No stenosis or aneurysm in the [place]. No large vessel occlusion. 2. No stenosis or dissection the bilateral carotid and vertebral arteries. Agree with overnight report. Dictated by: Dictated on workstation # [id number]
[2023-06-20] MEDS: ASPIRIN 81 MG CHEWABLE TABLET PO SCH (08:22)
[2023-06-20] MEDS: CLOPIDOGREL 75 MG TABLET PO SCH (08:22)
--- NOTE | 2023-06-20 09:03 | Physical Therapy Evaluation ---
PT Evaluation-General Medical Diagnosis Admission Date Jun 19, 2023 at 23:40 Medical Diagnosis: stroke Onset Date: Jun 19, 2023 Therapy Diagnosis Therapy Diagnosis: impaired mobility/generalized weakness Height/Weight Height (Feet): 6 Height (Inches): 0.00 Weight (Pounds): 225 Precautions Precautions/Isolations: Fall Prevention, Standard Precautions Referral Physician: Orville Reason for Referral: Evaluation/Treatment Medical History Pertinent Medical History: GERD Additional Medical History back pain Current History ER secondary to right UE and LE weakness "not working" Reviewed History: Yes Social History Home: Single Level Current Living Status: Spouse Entry Into Home: Stairs With Railing PT Steps Into Home: 2 Prior Prior Level of Function SCALE: Activities may be completed with or without assistive devices. 0-Suiofdproq-nuxgczf completes the activity by him/herself with no assistance from a helper. 5-Set-up or Clean-up Assistance-helper sets up or cleans up; patient completes activity. [place] assists only prior to or following the activity. 4-Supervision or Touching Assistance-helper provides verbal cues and/or touching/steadying and/or contact guard assistance as patient completes activity. Assistance may be provided throughout the activity or intermittently. 3-Partial/Moderate Assistance-helper does LESS THAN HALF the effort. [place] lifts, holds or supports trunk or limbs, but provides less than half the effort. 2-Substantial/Maximal Assistance-helper does MORE THAN HALF the effort. [place] lifts or holds trunk or limbs and provides more than half the effort. 2-Pbievavyo-xcckwi does ALL the effort. Patient does none of the effort to complete the activity. Or, the assistance of 2 or more helpers is required for the patient to complete the activity. If activity was not attempted, code reason: 7-Patient Refused. 9-Not Applicable-not attempted and the patient did not perform the activity before the current illness, exacerbation or injury. 10-Not Attempted due to Environmental Limitations-(lack of equipment, weather restraints, etc.). 88-Not Attempted due to Medical Conditions or Safety Concerns. Bed Mobility: 6 Transfers (B,C,W/C): 6 Gait: 6 Stairs: 6 Indoor Mobility (Ambulation): Independent Stairs: Independent Prior Devices Use: Other-see list below Prior Device Use: cane PT Evaluation-Current Subjective Patient agrees to PT. Objective Patient Orientation: Person, Time, Situation Attachments: IV ROM/Strength ROM Lower Extremities bilateral LE WFL Strength Lower Extremities 4-/5 grossly bilateral LE all planes Integumentary/Posture Bowel Incontinence: No Bladder Incontinence: No Posture WFL Neuromuscular (Tone, Coordination, Reflexes) grossly intact Sensory Vision: Functional Hearing: Impaired Transfers Lying to Sitting/Side of Bed(Q: 6 Sit to Stand (QC): 4 Chair/Fbc-lf-Cjipr Xfer(QC): 4 Gait Mode of Locomotion: Walk Anticipated Mode of Locomotion: Walk Walk 10 feet (QC): 4 Walk 50 ft with 2 Turns(QC): 4 Walk 150 ft (QC): 4 Distance: 225' Gait Assistive Device: FWW Comments/Gait Description safe and functional with no deviation Balance Sitting Static: Normal Sitting Dynamic: Normal Standing Static: Normal Standing Dynamic: Normal Assessment/Needs Patient will be seen short term by skilled PT to address functional mobility to ensure safe return to home with spouse at maximum LOF. Rehab Potential: Fair PT Health Care Facilities Inspector Goals Prison Goals PT Health Care Facilities Inspector Goals Time Frame: Jun 25, 2023 Roll Left & Right (QC): 6 Sit to Lying (QC): 6 Lying-Sitting on Side/Bed(QC): 6 Sit to Stand (QC): 6 Chair/Fsp-dm-Tssby Xfer(QC): 6 Toilet Transfer (QC): 6 Walk 10 feet (QC): 6 Walk 50ft with 2 Turns (QC): 6 Walk 150 ft (QC): 6 PT Plan Problem List Problem List: Safety Treatment/Plan Treatment Plan: Continue Plan of Care Treatment Plan: Education, Functional Activity Sue, Functional Strength, Gait, Safety, Therapeutic Exercise, Transfers Treatment Duration: Jun 25, 2023 Frequency: 5 times per week Estimated Hrs Per Day: .25 hour per day Patient and/or Family Agrees t: Yes Time Time In: 747 Time Out: 811 DATE: Jun 20, 2023 Total Billed Treatment Time: 24 Total Billed Treatment 1 visit EVModC 10 min FA 14 min TOMY VILLARREAL PT Jun 20, 2023 09:03
[2023-06-20] MEDS: fentaNYL INJECTION 100 MCG/2 ML VIAL IV PRN ×6 (09:13→23:42)
--- NOTE | 2023-06-20 09:38 | Tele-ICU Progress Note ---
Subjective Date Seen by a Provider: Jun 20, 2023 Time Seen by a Provider: 09:37 Subjective/Events-last exam (Tele-ICU Physician , consultation as per request of PCP Service provided via interactive audio and video telecommunications E-CARE system to a patient admitted to ICU bed in [facility]. Available chart/ vitals / labs / Images reviewed H&P is from ER notes Patient's information available about PMH, Shx, Fhx allergy reviewed inEMR. ROS as per chart and RN report Now in ICU, hemodynamically stable Video assessment done using teleICU camera, rest of exam as per RN Discussed with RN. Hospital course: A/P TIA/ ? CVA - sumptoms resolved -neurocheck/NIHSS/VS monitoring -IV hydralazine and labetalol PRN for BP >185/105- start BP mensd tomorrow id still HTN -Antithrombotic medication started ECHO and carotid US pending Lines : , (Central Line Necessity Reviewed) Og: OG: Nutrition: Analgesia: Anxiety/ delirium VTE Prophylaxis: scd Stress Ulcer Prophylaxis: na Plans in collaboration with bedside consultants and IM MDs. Discussed with RN to reach out if any questions or concerns A total of 15 minutes of critical care time was devoted to this patient today, required to treat and/or prevent further deterioration of critical care condition ( as above ) . I am remotely monitoring this patient from another state. I am unable to do the bedside exam, and history/physical and pertinent information is taken from other notes in the computer and bedside staff. . Sepsis Event Evaluation Height, Weight, BMI Height: 6'0.00" Weight: 225lbs. oz. 102.191245vv; 32.04 BMI Method:Stated Exam Exam Patient acknowledged, consented, and participated in this virtual visit which was conducted using real time audio/video Vital Signs Date Time Temp Pulse Resp B/P (MAP) Pulse Ox O2 Delivery O2 Flow Rate FiO2 06/20/23 09:00 80 11 176/93 (113) 91 Nasal Cannula 2.00 06/20/23 08:01 35.9 06/20/23 08:00 80 25 172/95 (120) 96 Nasal Cannula 2.00 06/20/23 07:00 80 17 182/100 (128) 94 Nasal Cannula 2.00 06/20/23 07:00 76 06/20/23 06:14 140/75 (96) 06/20/23 06:00 64 12 212/115 (147) 97 Nasal Cannula 2.00 06/20/23 05:00 65 10 198/139 (158) 90 Nasal Cannula 2.00 06/20/23 04:00 95 Nasal Cannula 2.00 06/20/23 04:00 72 12 156/80 (105) 91 Nasal Cannula 2.00 06/20/23 03:00 69 12 181/92 (121) 92 Nasal Cannula 2.00 06/20/23 02:00 75 11 170/80 (110) 93 Nasal Cannula 2.00 06/20/23 01:00 78 12 168/81 (110) 95 Nasal Cannula 2.00 06/20/23 00:53 75 06/20/23 00:30 77 12 168/107 (127) 91 Nasal Cannula 2.00 06/20/23 00:15 79 20 165/86 (112) 92 Nasal Cannula 2.00 06/20/23 00:00 94 Nasal Cannula 2.00 06/20/23 00:00 79 17 168/90 (116) 93 Nasal Cannula 2.00 06/19/23 23:37 75 06/19/23 23:08 71 16 150/89 94 06/19/23 21:28 36.6 76 16 205/117 (146) 94 Room Air 06/19/23 21:28 96 Nasal Cannula 2.00 I & O 06/20/23 07:00 Intake Total 0 ml Output Total 475 ml Balance -475 ml Height & Weight Height: 6'0.00" Weight: 225lbs. oz. 102.353634fn; 32.04 BMI Method:Stated General Appearance: Other Capillary Refill: Less Than 3 Seconds Peripheral Pulses: 2+ Dorsalis Pedis (R), 2+ Left Dors-Pedis (L), 2+ Radial Pulses (R), 2+ Radial Pulses (L) Gastrointestinal: normal bowel sounds, non tender, soft, hernia (LARGE VENTRAL HERNIA PRESENT) Results Lab Laboratory Tests 06/19/23 21:33 06/20/23 03:51 Assessment/Plan Assessment/Plan 1 JAY ZEPEDA MD Jun 20, 2023 09:38
[2023-06-20] MEDS: ONDANSETRON 4 MG/2 ML (SDV) Z0FRAN IV PRN ×4 (09:55→23:08)
[2023-06-20] MEDS ORDERED: GADOTERATE 0.5 MMOL/ML (CLARISCAN) 20 ML VIAL IV ONE (11:30)
--- NOTE | 2023-06-20 12:08 | Diagnostic Imaging Report ---
PROCEDURE: MR imaging of the brain without contrast. TECHNIQUE: Multiplanar, multisequence MR imaging of the brain was performed without contrast. INDICATION: Right-sided weakness. Concern for stroke. COMPARISON: 06/19/2023. FINDINGS: A small area of acute/subacute ischemia is seen involving the left basal ganglia with extension into the left de leon radiata. No associated hemorrhage or mass effect. T2 hyperintense signal seen in the periventricular and subcortical white matter. The ventricles and cortical sulci are prominent. The basilar cisterns are symmetric and unremarkable. The sellar and suprasellar regions have a normal appearance. The brainstem and posterior fossa are unremarkable. The paranasal sinuses and mastoid air cells demonstrate normal signal characteristics. The globes and orbits are symmetric and unremarkable. The scalp and calvarium have a normal appearance. IMPRESSION: 1. Small area of acute/subacute ischemia involving the left basal ganglia and left de leon radiata. No associated hemorrhage or mass effect. 2. Parenchymal volume loss with chronic microvascular disease. Dictated by: Dictated on workstation # [id number]
[2023-06-20] MEDS ORDERED: TRAM50TA3 PO (13:04)
[2023-06-20] MEDS ORDERED: FENT1PAT11 TD (13:05)
[2023-06-20] MEDS ORDERED: ESCI20TA39 PO (13:06)
[2023-06-20] MEDS ORDERED: OMEP40CA6 PO (13:06)
[2023-06-20] MEDS ORDERED: PREG150C46 PO (13:06)
[2023-06-20] MEDS ORDERED: LYCO1CAP2 PO (13:07)
[2023-06-20] MEDS ORDERED: ASPI-992 PO (13:07)
[2023-06-20] MEDS ORDERED: TEST75GE12 TOP (13:16)
[2023-06-20] MEDS ORDERED: ACETAMINOPHEN 325 MG TABLET PO PRN (13:30)
[2023-06-20] MEDS ORDERED: fentaNYL INJECTION 100 MCG/2 ML VIAL IVP ONE (15:00)
--- NOTE | 2023-06-20 15:05 | History & Physical-Hospitalist ---
History of Present Illness HPI/Chief Complaint Jeovany Gonsalez is an 88 year old male with PMH chronic back pain, chronic prescription opiate use, GERD, depression, who was admitted with stroke like symptoms. He woke up from a nap yesterday and was trying to take a drink but he could not get the cup to his mouth. He also says he was dragging his right leg when he walked. He also had some speech and swallowing dificulty. Upon my exam this morning, he is no longer having any symptoms. He was able to walk with therapy without issue. He is not having any speech or swallowing trouble. He feels like he is back to his normal self. He denies chest pain and shortness of breath. He did have some abdominal pain yesterday which has now resolved. He has no other complaints. Source: patient, family Exam Limitations: no limitations Date Seen 06/20/23 Time Seen by a Provider: 10:10 Attending Physician Mane Ng MD PCP Admitting Physician: Alen Spencer MD Attending Physician: Alen Spencer MD Referring Physician Date of Admission Jun 19, 2023 at 23:40 Home Medications & Allergies Home Medications Reviewed patient Home Medication Reconciliation performed by pharmacy medication reconciliations biomedical equipment technician and/or nursing. Patients Allergies have been reviewed. Allergies Allergies Coded Allergies morphine (Unverified Allergy, Severe, 03/19/22) HALLUCINATIONS Past Ygxkajh-Zloejg-Ubxrxq Hx Patient Social History Tobacco Use?: No Smoking Status: Former Smoker Use of E-Cig and/or Vaping dev: No Substance use?: No Alcohol Use?: No Pt feels they are or have been: No Immunizations Up To Date First/Initial COVID19 Vaccinat: 2020 Second COVID19 Vaccination Rohan: 2020 Tetanus Booster (TDap): Unknown Date of Pneumonia Vaccine: Dec 10, 2007 Seasonal Allergies Seasonal Allergies: Yes Current Status Advance Directives: No Communicates: Verbally Primary Language: Togolese Preferred Spoken Language: Togolese Is interpretation needed?: No Sensory deficits: Vision impairment, Hearing impairment Implanted or Applied Medical D: None Past Medical History Surgeries: Abdominal, Appendectomy, Bladder Surgery, Cardiac, Gallbladder, Renal Currently Using CPAP: No Currently Using BIPAP: No High Cholesterol Kidney Stones Gastroesophageal Reflux, Diverticulosis Chronic Back Pain Bladder Did You Recieve Any Treatments: Yes What Type of Treatment Did You: Surgical Intervention 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 HARMON. COMPLICATED BY PERFORATION TO BLADDER--TREATED NON-SURGICALLY -APPENDECTOMY -CHOLECYSTECTOMY -OPEN KIDNEY STONE REMOVAL -HERNIA REPAIR -CARDIAC CATH 11/[address] 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 EF 55-60% Review of Systems Constitutional: weakness Respiratory: no symptoms reported Cardiovascular: no symptoms reported Gastrointestinal: no symptoms reported Psychiatric/Neurological: Numbness, Weakness Physical Exam Physical Exam Vital Signs Vital Signs - First Documented 06/19/23 21:28 Temp 36.6 Pulse 76 Resp 16 B/P (MAP) 205/117 (146) Pulse Ox 96 O2 Delivery Nasal Cannula O2 Flow Rate 2.00 Capillary Refill : Less Than 3 Seconds Height, Weight, BMI Height: 6'0.00" Weight: 225lbs. oz. 102.663649np; 32.04 BMI Method:Stated General Appearance: No Apparent Distress, WD/WN HEENT: PERRL/EOMI, Pharynx Normal Neck: Normal Inspection, Supple Respiratory: Lungs Clear, Normal Breath Sounds, No Respiratory Distress Cardiovascular: Regular Rate, Rhythm, No Edema, No Murmur Gastrointestinal: Normal Bowel Sounds, Non Tender, Soft Extremity: Normal Inspection, Non Tender, No Pedal Edema Neurologic/Psychiatric: Alert, Oriented x3, No Motor/Sensory Deficits, Normal Mood/Affect, hand marker II-XII Norm as Tested Skin: Normal Color, Warm/Dry Results Results/Procedures Labs Laboratory Tests 06/19/23 21:33 06/20/23 03:51 Patient resulted labs reviewed. Imaging: Reviewed Imaging Report Assessment/Plan Admission Diagnosis CVA of left basal ganglia Admission Status: Inpatient Order (span 2 midnights) Reason for Inpatient Admission: Stroke Assessment and Plan CVA of left basal ganglia HTN emergency HLD Obesity CT unrevealing MRI with left basal ganglia infarction ASA and Lipitor PT/OT Symptoms resolved this morning Nicardipine gtt TeleICU consulted Chronic pain Chronic prescription opiate use Fentanyl patch Tramadol as needed IV Fentanyl as needed DVT prophylaxis: Lovenox Critical Care Critically Ill Patient Diagnosis/Problems Diagnosis/Problems (1) Cerebrovascular accident (CVA) of left basal ganglia Status: Acute (2) Hypertensive emergency Status: Acute (3) HTN (hypertension) Status: Acute Qualifiers: Hypertension type: primary hypertension Qualified Codes: I10 - Essential (primary) hypertension (4) HLD (hyperlipidemia) Status: Acute (5) Obesity Status: Chronic (6) Chronic pain Status: Chronic (7) Chronic prescription opiate use Status: Chronic ALEN SPENCER MD Jun 20, 2023 15:05
[2023-06-20 15:13] VITALS: BP 191/109
[2023-06-20] MEDS ORDERED: amLODIPine 10 MG TABLET PO ONE (15:30)
[2023-06-20] MEDS ORDERED: amLODIPine 10 MG TABLET ONE (15:31)
[2023-06-20] MEDS ORDERED: hydrALAZINE INJECTION 20 MG/ML VIAL ONE (15:31)
[2023-06-20] MEDS: ENOXAPARIN 40 MG/0.4 ML SYRINGE SC SCH (15:32)
[2023-06-20] MEDS: NS IV SCH (16:32)
[2023-06-20] MEDS: NICARDIPINE IV SCH (16:32)
[2023-06-20] MEDS ORDERED: METOCLOPRAMIDE INJ 10 MG/2 ML (REGLAN) IVP PRN (17:00)
[2023-06-20] MEDS ORDERED: KETOROLAC INJ 30 MG/ML VIAL IVP NR (17:00)
[2023-06-20] MEDS ORDERED: METOCLOPRAMIDE INJ 10 MG/2 ML (REGLAN) ONE (17:08)
[2023-06-20] MEDS: TAMSULOSIN 0.4 MG (FLOMAX) CAP PO SCH (17:13)
--- NOTE | 2023-06-20 17:30 | Tele-ICU Progress Note ---
Progress Note readmitted with STILES , N/V started on cardene gtt - with SBP 160s ( as was in the morning 0- simptoms still persist will try toradol ( already on fentanyl patch DIRECTOR FINANCIAL PLANNING and andrew ) , keep SBP 160 now ( with MRI shows Small area of acute/subacute ischemia involving the left basal ganglia and left de leon radiata) and reassess in 1-2 h Focused Exam Height, Weight, BMI Height: 6'0.00" Weight: 225lbs. oz. 102.585249lh; 32.04 BMI Method:Stated JAY ZEPEDA MD Jun 20, 2023 17:30
[2023-06-20] MEDS ORDERED: NON-FORMULARY MEDICATION 1 EA EA (Escitalopram Oxalate 20 MG) PO SCH (21:00)
[2023-06-20] MEDS ORDERED: SILODOSIN 8 MG PO SCH (21:00)
[2023-06-20] MEDS: PREGABALIN 150 MG (LYRICA) CAPSULE PO SCH (21:04)
[2023-06-20] MEDS: CITALOPRAM 20 MG TABLET PO SCH (21:04)
[2023-06-21] MEDS: NS IV SCH ×3 (02:03→22:15)
[2023-06-21] MEDS: NICARDIPINE IV SCH ×3 (02:03→22:15)
[2023-06-21] MEDS: fentaNYL INJECTION 100 MCG/2 ML VIAL IV PRN (02:12)
[2023-06-21] MEDS ORDERED: NS IV 500 ML 500 ML IV PRN (02:15)
--- NOTE | 2023-06-21 02:29 | Tele-ICU Progress Note ---
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 oz. 102.236546pb; 32.04 BMI Method:Stated Exam Exam Patient acknowledged, consented, and participated in this virtual visit which was conducted using real time audio/video Vital Signs Date Time Temp Pulse Resp B/P (MAP) Pulse Ox O2 Delivery O2 Flow Rate FiO2 06/21/23 02:00 84 11 142/106 (118) 94 Room Air 06/21/23 01:00 93 06/21/23 01:00 93 13 125/111 (116) 96 Room Air 06/21/23 00:21 81 16 147/95 (112) 95 Room Air 06/20/23 23:00 97 17 173/90 (117) 93 Room Air 06/20/23 22:00 93 8 151/77 (101) 94 Room Air 06/20/23 21:00 84 11 139/106 (117) 92 Room Air 06/20/23 20:15 95 Room Air 06/20/23 20:03 36.0 06/20/23 20:00 109 175/103 (127) 94 Room Air 06/20/23 19:30 123/86 06/20/23 19:00 90 06/20/23 19:00 90 10 166/91 (116) 95 Room Air 06/20/23 18:21 202/116 06/20/23 18:00 7 10 186/93 (124) 96 Room Air 06/20/23 17:13 133/110 06/20/23 17:06 133/110 06/20/23 17:00 87 18 162/81 (108) 93 Room Air 06/20/23 16:32 234/120 06/20/23 16:10 94 Room Air 06/20/23 16:00 85 18 159/88 (111) 95 Room Air 06/20/23 15:13 36.7 85 19 191/109 (136) 93 Room Air 06/20/23 13:00 83 06/20/23 11:45 36.7 90 20 133/76 (95) 93 Room Air 06/20/23 11:35 Room Air 06/20/23 10:00 85 13 173/93 (119) 91 Room Air 06/20/23 09:38 Room Air 06/20/23 09:00 80 11 176/93 (113) 91 Nasal Cannula 2.00 06/20/23 08:01 35.9 06/20/23 08:00 80 25 172/95 (120) 96 Nasal Cannula 2.00 06/20/23 08:00 96 Nasal Cannula 2.00 06/20/23 07:00 80 17 182/100 (128) 94 Nasal Cannula 2.00 06/20/23 07:00 76 06/20/23 06:14 140/75 (96) 06/20/23 06:00 64 12 212/115 (147) 97 Nasal Cannula 2.00 06/20/23 05:00 65 10 198/139 (158) 90 Nasal Cannula 2.00 06/20/23 04:00 95 Nasal Cannula 2.00 06/20/23 04:00 72 12 156/80 (105) 91 Nasal Cannula 2.00 06/20/23 03:00 69 12 181/92 (121) 92 Nasal Cannula 2.00 I & O 06/21/23 07:00 Intake Total 2400 ml Output Total 1450 ml Balance 950 ml Height & Weight Height: 6'0.00" Weight: 225lbs. oz. 102.334973fz; 32.04 BMI Method:Stated General Appearance: No Apparent Distress, WD/WN HEENT: PERRL/EOMI, Pharynx Normal Neck: Normal Inspection, Supple Respiratory: Lungs Clear, Normal Breath Sounds, No Respiratory Distress Cardiovascular: Regular Rate, Rhythm, No Edema, No Murmur Capillary Refill: Less Than 3 Seconds Peripheral Pulses: 2+ Dorsalis Pedis (R), 2+ Left Dors-Pedis (L), 2+ Radial Pulses (R), 2+ Radial Pulses (L) Gastrointestinal: normal bowel sounds, non tender, soft, hernia (LARGE VENTRAL HERNIA PRESENT) Extremity: Normal Inspection, Non Tender, No Pedal Edema Neurologic/Psychiatric: Alert, Oriented x3, No Motor/Sensory Deficits, Normal Mood/Affect, hospitality intern II-XII Norm as Tested Skin: Normal Color, Warm/Dry Results Lab Laboratory Tests 06/19/23 21:33 06/20/23 03:51 Assessment/Plan Assessment/Plan called for severe head ache, 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
[2023-06-21] MEDS: D5 1/2NS + KCL 20 MEQ/L 1000ML 1,000 ML IV SCH ×3 (02:48→18:46)
[2023-06-21] MEDS: ONDANSETRON 4 MG/2 ML (SDV) Z0FRAN IV PRN ×2 (04:12→08:48)
--- NOTE | 2023-06-21 04:14 | Tele-ICU Progress Note ---
Subjective Date Seen by a Provider: Jun 21, 2023 Time Seen by a Provider: 04:12 Subjective/Events-last exam Given 50 mcg IV Fentanyl, pain relief lasted for 45 min, now again 10/10 pain, I suspect there is marked opiod tolerance from chronic use, for tonight will try IV Dilaudid 1mg which has not tired before, and at later time resume fentanyl patch which is already ordered Sepsis Event Evaluation Height, Weight, BMI Height: 6'0.00" Weight: 225lbs. oz. 102.319256ss; 32.04 BMI Method:Stated Exam Exam Patient acknowledged, consented, and participated in this virtual visit which was conducted using real time audio/video Vital Signs Date Time Temp Pulse Resp B/P (MAP) Pulse Ox O2 Delivery O2 Flow Rate FiO2 06/21/23 03:21 137/75 06/21/23 03:00 95 10 139/78 (98) 93 Room Air 06/21/23 02:15 206/106 06/21/23 02:00 84 11 142/106 (118) 94 Room Air 06/21/23 01:00 93 06/21/23 01:00 93 13 125/111 (116) 96 Room Air 06/21/23 00:21 81 16 147/95 (112) 95 Room Air 06/20/23 23:59 93 Room Air 06/20/23 23:00 97 17 173/90 (117) 93 Room Air 06/20/23 22:00 93 8 151/77 (101) 94 Room Air 06/20/23 21:00 84 11 139/106 (117) 92 Room Air 06/20/23 20:15 95 Room Air 06/20/23 20:03 36.0 06/20/23 20:00 109 175/103 (127) 94 Room Air 06/20/23 19:30 123/86 06/20/23 19:00 90 06/20/23 19:00 90 10 166/91 (116) 95 Room Air 06/20/23 18:21 202/116 06/20/23 18:00 7 10 186/93 (124) 96 Room Air 06/20/23 17:13 133/110 06/20/23 17:06 133/110 06/20/23 17:00 87 18 162/81 (108) 93 Room Air 8/7/23 16:32 234/120 06/20/23 16:10 94 Room Air 06/20/23 16:00 85 18 159/88 (111) 95 Room Air 06/20/23 15:13 36.7 85 19 191/109 (136) 93 Room Air 06/20/23 13:00 83 06/20/23 11:45 36.7 90 20 133/76 (95) 93 Room Air 06/20/23 11:35 Room Air 06/20/23 10:00 85 13 173/93 (119) 91 Room Air 06/20/23 09:38 Room Air 06/20/23 09:00 80 11 176/93 (113) 91 Nasal Cannula 2.00 06/20/23 08:01 35.9 06/20/23 08:00 80 25 172/95 (120) 96 Nasal Cannula 2.00 06/20/23 08:00 96 Nasal Cannula 2.00 06/20/23 07:00 80 17 182/100 (128) 94 Nasal Cannula 2.00 06/20/23 07:00 76 06/20/23 06:14 140/75 (96) 06/20/23 06:00 64 12 212/115 (147) 97 Nasal Cannula 2.00 06/20/23 05:00 65 10 198/139 (158) 90 Nasal Cannula 2.00 I & O 06/21/23 07:00 Intake Total 2400 ml Output Total 1650 ml Balance 750 ml Height & Weight Height: 6'0.00" Weight: 225lbs. oz. 102.078842bd; 32.04 BMI Method:Stated General Appearance: No Apparent Distress, WD/WN HEENT: PERRL/EOMI, Pharynx Normal Neck: Normal Inspection, Supple Respiratory: Lungs Clear, Normal Breath Sounds, No Respiratory Distress Cardiovascular: Regular Rate, Rhythm, No Edema, No Murmur Capillary Refill: Less Than 3 Seconds Peripheral Pulses: 2+ Dorsalis Pedis (R), 2+ Left Dors-Pedis (L), 2+ Radial Pulses (R), 2+ Radial Pulses (L) Gastrointestinal: normal bowel sounds, non tender, soft, hernia (LARGE VENTRAL HERNIA PRESENT) Extremity: Normal Inspection, Non Tender, No Pedal Edema Neurologic/Psychiatric: Alert, Oriented x3, No Motor/Sensory Deficits, Normal Mood/Affect, brick 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
[2023-06-21] MEDS ORDERED: HYDROmorphone INJECTION 2 MG/ML VIAL IV ONE ×2 (04:15→08:30)
[2023-06-21 05:06] LABS: BASOPHILS % (AUTO) 0 % (0-10); EOSINOPHILS % (AUTO) 0 % (0-10); HEMATOCRIT 47 % (40-54); HEMOGLOBIN 16.2 g/dL (13.3-17.7); LYMPHOCYTES # (AUTO) 1.3 10^3/uL (1.0-4.0); LYMPHOCYTES % (AUTO) 20 % (12-44); MEAN CORPUSCULAR HEMOGLOBIN 30 pg (25-34); MEAN CORPUSCULAR HGB CONC 34 g/dL (32-36); MEAN CORPUSCULAR VOLUME 87 fL (80-99); MEAN PLATELET VOLUME 10.2 fL (9.0-12.2); MONOCYTES # (AUTO) 0.4 10^3/uL (0.0-1.0); MONOCYTES % (AUTO) 6 % (0-12); NEUTROPHILS # (AUTO) 4.8 10^3/uL (1.8-7.8); NEUTROPHILS % (AUTO) 73 % (42-75); PLATELET COUNT 263 10^3/uL (130-400); WHITE BLOOD COUNT 6.6 10^3/uL (4.3-11.0)
[2023-06-21 05:39] LABS: BILIRUBIN,TOTAL 1.1 MG/DL (0.1-1.0); CALCIUM 9.5 MG/DL (8.5-10.1); CREATININE SERUM 1.04 MG/DL (0.60-1.30); PHOSPHORUS 1.9 MG/DL (2.3-4.7); POTASSIUM 4.6 MMOL/L (3.6-5.0); TOTAL PROTEIN 7.4 GM/DL (6.4-8.2)
[2023-06-21] MEDS: POTASSIUM CL 10MEQ/50ML IVPB 50 ML IV SCH (05:40)
[2023-06-21] MEDS: MAGNESIUM 1 GM/100 ML IVPB 100 ML IV SCH (05:40)
[2023-06-21] MEDS: POTASSIUM CHLORIDE 20 MEQ TABLET PO SCH (05:41)
--- NOTE | 2023-06-21 07:07 | Physical Therapy Progress Note ---
Therapy Progress Note Patient transferred to 4th medical floor, then transferred back to ICU. PT will require new orders due to change in status. TOMY VILLARREAL PT Jun 21, 2023 07:07
--- NOTE | 2023-06-21 08:31 | Physical Therapy Progress Note ---
Therapy Progress Note PT screened patient with patient in noted 10/10 STILES and "dry heaving". at bed side. RN notified, patient reports multiple tick bites. TOMY VILLARREAL PT Jun 21, 2023 08:31
[2023-06-21] MEDS ORDERED: NON-FORMULARY MEDICATION 1 EA EA (Omeprazole 40 MG) PO SCH (09:00)
[2023-06-21] MEDS: ASPIRIN 81 MG CHEWABLE TABLET PO SCH (10:21)
[2023-06-21] MEDS: CITALOPRAM 20 MG TABLET PO SCH ×2 (10:22→20:22)
[2023-06-21] MEDS: CLOPIDOGREL 75 MG TABLET PO SCH (10:22)
[2023-06-21] MEDS: PREGABALIN 150 MG (LYRICA) CAPSULE PO SCH ×2 (10:22→20:22)
[2023-06-21] MEDS: PANTOPRAZOLE 40 MG (PROTONIX) TAB PO SCH (10:22)
--- NOTE | 2023-06-21 10:27 | Speech Therapy Progress Note ---
Therapy Progress Note Per PT: Patient c/o 10/10 headache with nausea. Pt refused PT services and other therapy services this morning. Reportedly has regular diet, but not eating due to feeling unwell. Pt and nursing staff have no ST concerns at this time. Consult only on this date. JARON KRUGER Jun 21, 2023 10:27
[2023-06-21] MEDS: HYDROmorphone INJECTION 2 MG/ML VIAL IV PRN ×3 (11:04→18:45)
--- NOTE | 2023-06-21 12:25 | Progress Note - Hospitalist ---
Subjective HPI/CC On Admission Date Seen by Provider: Jun 21, 2023 Jeovany Gonsalez is an 88 year old male with PMH chronic back pain, chronic prescription opiate use, GERD, depression, who was admitted with stroke like symptoms. He woke up from a nap yesterday and was trying to take a drink but he could not get the cup to his mouth. He also says he was dragging his right leg when he walked. He also had some speech and swallowing dificulty. Upon my exam this morning, he is no longer having any symptoms. He was able to walk with therapy without issue. He is not having any speech or swallowing trouble. He feels like he is back to his normal self. He denies chest pain and shortness of breath. He did have some abdominal pain yesterday which has now resolved. He has no other complaints. Subjective/Events-last exam Pt reports severe pain. reports fentanyl patch off since yesterday around 2pm. Pain increasing overnight. Improves with dilaudid. states head pain has happened before and he has responded to steroids injections. BPs have been high as well. Unsure if headache started before BP increased. After visiting with the patient informed of multiple ticks bites that are a couple of months old by RN. Objective Exam Vital Signs Vital Signs Date Time Temp Pulse Resp B/P (MAP) Pulse Ox O2 Delivery O2 Flow Rate FiO2 06/21/23 11:44 36.7 06/21/23 11:00 93 13 90 Room Air 06/20/23 09:00 2.00 Capillary Refill : Less Than 3 Seconds General Appearance: No Apparent Distress, Chronically ill Respiratory: Lungs Clear, No Respiratory Distress Cardiovascular: Regular Rate, Rhythm, No Murmur Neurologic/Psychiatric: Alert, Oriented x3 Results/Procedures Lab Laboratory Tests 06/21/23 03:55 Patient resulted labs reviewed. Imaging: Reviewed Imaging Report Assessment/Plan Assessment and Plan Assess & Plan/Chief Complaint CVA of left basal ganglia HTN emergency HLD Obesity CT/CTA unrevealing MRI with left basal ganglia infarction ASA and Lipitor PT/OT Nicardipine gtt for BP TeleICU consulted Chronic pain Chronic prescription opiate use Fentanyl patch- ordered to be repalced Tramadol as needed IV Dilaudid as needed Consider repeat CT head if pain not controlled DVT prophylaxis: Lovenox Critical Care Critically Ill Patient JEANNIE BARRAZA MD Jun 21, 2023 12:25
--- NOTE | 2023-06-21 12:43 | Tele-ICU Progress Note ---
Subjective Date Seen by a Provider: Jun 21, 2023 Time Seen by a Provider: 12:43 Subjective/Events-last exam (Tele-ICU Physician , Progress Note ) Service provided via interactive audio and video telecommunications E-CARE sys tem to a patient admitted to ICU bed in [facility]. Patient is seen today due to persistent need of ICU care Available chart/ vitals / labs / Images reviewed Video assessment done using teleICU camera, rest of exam as per RN Discussed with RN Events overnight : Hospital course 88 y/o M hx of back pain, chronic prescription opiate use, GERD, depression, admitted with STILES noted to have elevated BP to 160s requiring cardene gtt. Noted to have increased pain. States previoulsy had fentanyl patch however now requiring dilaudid IV. Has been off gtt since 4:30 AM. Afebrile hemodynamically stable Respiratory - 2L NC I/O =+ Drips: None Pressors: None A/P HTN urgency: Previously on nicardipine gtt. Now improved. Would attempt restarting PO meds. Pain control: Hx of chronic pain. Responses to dilaudid. Restarted fentanyl patch. Would consider pain consult At this time given no ICU needs patient likely to be transferred after tolerating PO meds. VTE Prophylaxis: enoxaparin Stress Ulcer Prophylaxis: Omeprazole Plans in collaboration with bedside consultants and IM MDs. Discussed with RN to reach out if any questions or concerns Case and care daily discussed on multidisciplinary rounds ( RN, PharmD, Holter Technician , Respiratory Therapy, board worker ) A total of 10 minutes of critical care time was devoted to this patient today, required to treat and/or prevent further deterioration of critical care condition ( as above ) . Sepsis Event Evaluation Height, Weight, BMI Height: 6'0.00" Weight: 225lbs. oz. 102.367572jr; 32.16 BMI Method:Stated Exam Exam Patient acknowledged, consented, and participated in this virtual visit which was conducted using real time audio/video Vital Signs Date Time Temp Pulse Resp B/P (MAP) Pulse Ox O2 Delivery O2 Flow Rate FiO2 06/21/23 11:44 36.7 06/21/23 11:36 36.6 06/21/23 11:04 36.6 06/21/23 11:00 93 13 90 Room Air 06/21/23 10:50 172/95 06/21/23 10:15 36.6 06/21/23 10:00 85 28 145/90 (108) 91 Room Air 06/21/23 09:18 36.6 06/21/23 09:16 36.6 06/21/23 09:00 90 21 144/92 (109) 92 Room Air 06/21/23 08:48 36.6 06/21/23 08:00 94 10 172/95 (120) 95 Room Air 06/21/23 07:56 36.6 06/21/23 07:00 87 06/21/23 07:00 86 13 174/99 (124) 93 Room Air 06/21/23 06:00 85 14 143/103 (116) 96 Room Air 06/21/23 05:00 86 14 157/83 (107) 95 Room Air 06/21/23 04:46 36.5 06/21/23 04:00 97 16 159/86 (110) 93 Room Air 06/21/23 04:00 93 Room Air 06/21/23 03:21 137/75 06/21/23 03:00 95 10 139/78 (98) 93 Room Air 06/21/23 02:15 206/106 06/21/23 02:00 84 11 142/106 (118) 94 Room Air 06/21/23 01:00 93 06/21/23 01:00 93 13 125/111 (116) 96 Room Air 06/21/23 00:21 81 16 147/95 (112) 95 Room Air 06/21/23 00:00 36.6 06/20/23 23:59 93 Room Air 06/20/23 23:00 97 17 173/90 (117) 93 Room Air 06/20/23 22:00 93 8 151/77 (101) 94 Room Air 06/20/23 21:00 84 11 139/106 (117) 92 Room Air 06/20/23 20:15 95 Room Air 06/20/23 20:03 36.0 06/20/23 20:00 109 175/103 (127) 94 Room Air 06/20/23 19:30 123/86 06/20/23 19:00 90 06/20/23 19:00 90 10 166/91 (116) 95 Room Air 06/20/23 18:21 202/116 06/20/23 18:00 7 10 186/93 (124) 96 Room Air 06/20/23 17:13 133/110 06/20/23 17:06 133/110 06/20/23 17:00 87 18 162/81 (108) 93 Room Air 06/20/23 16:32 234/120 06/20/23 16:10 94 Room Air 06/20/23 16:00 85 18 159/88 (111) 95 Room Air 06/20/23 15:13 36.7 85 19 191/109 (136) 93 Room Air 06/20/23 13:00 83 I & O 06/21/23 07:00 Intake Total 2400 ml Output Total 1650 ml Balance 750 ml Height & Weight Height: 6'0.00" Weight: 225lbs. oz. 102.507096xa; 32.16 BMI Method:Stated General Appearance: No Apparent Distress, Chronically ill HEENT: PERRL/EOMI, Pharynx Normal Neck: Normal Inspection, Supple Respiratory: Lungs Clear, No Respiratory Distress Cardiovascular: Regular Rate, Rhythm, No Murmur Capillary Refill: Less Than 3 Seconds Peripheral Pulses: 2+ Dorsalis Pedis (R), 2+ Left Dors-Pedis (L), 2+ Radial Pulses (R), 2+ Radial Pulses (L) Gastrointestinal: normal bowel sounds, non tender, soft, hernia (LARGE VENTRAL HERNIA PRESENT) Extremity: Normal Inspection, Non Tender, No Pedal Edema Neurologic/Psychiatric: Alert, Oriented x3 Skin: Normal Color, Warm/Dry Results Lab Laboratory Tests 06/19/23 21:33 06/20/23 03:51 06/21/23 03:55 Assessment/Plan Assessment/Plan . MOSHE BLEVINS MD Jun 21, 2023 12:43
[2023-06-21] MEDS: ENOXAPARIN 40 MG/0.4 ML SYRINGE SC SCH (15:56)
--- NOTE | 2023-06-21 16:02 | Diagnostic Imaging Report ---
PROCEDURE: US carotid duplex, bilateral. TECHNIQUE: Multiple real-time grayscale images were obtained over the carotid arteries in various projections, bilaterally. Additional spectral analysis and color Doppler duplex images were also obtained. INDICATION: Cerebrovascular accident. FINDINGS: Common carotid arteries are widely patent bilaterally with normal arterial waveforms. There is no significant area of stenosis or velocity elevation. Minimal atherosclerotic plaque is seen within the carotid bulbs without evidence of stenosis or occlusion. Internal carotid arteries are unremarkable and there are normal antegrade waveforms in both vertebral arteries. IMPRESSION: Minimal atherosclerotic plaque without ultrasound evidence of hemodynamically significant stenosis. Parameters based on the consensus panel Araujo-Scale and Doppler ultrasound criteria published September 2003, Radiology, Volume 229. DOPPLER (peak systolic velocity M/S Right Left CCA 1.00 1.33 ICA Proximal 0.47 0.61 ICA Mid 0.46 0.64 ICA Distal 0.45 0.81 RATIO 0.47 0.61 ECA 1.08 1.17 VERT 0.85 0.72 Dictated by: Dictated on workstation # [id number]
[2023-06-21] MEDS: TAMSULOSIN 0.4 MG (FLOMAX) CAP PO SCH (18:45)
[2023-06-21] MEDS ORDERED: FENTANYL 100 MCG TD SCH (21:00)
[2023-06-22] MEDS: D5 1/2NS + KCL 20 MEQ/L 1000ML 1,000 ML IV SCH (02:27)
[2023-06-22 04:02] LABS: BASOPHILS % (AUTO) 1 % (0-10); EOSINOPHILS # (AUTO) 0.1 10^3/uL (0.0-0.3); EOSINOPHILS % (AUTO) 3 % (0-10); HEMATOCRIT 43 % (40-54); HEMOGLOBIN 14.4 g/dL (13.3-17.7); LYMPHOCYTES # (AUTO) 2.3 10^3/uL (1.0-4.0); LYMPHOCYTES % (AUTO) 44 % (12-44); MEAN CORPUSCULAR HEMOGLOBIN 29 pg (25-34); MEAN CORPUSCULAR HGB CONC 34 g/dL (32-36); MEAN CORPUSCULAR VOLUME 87 fL (80-99); MEAN PLATELET VOLUME 10.1 fL (9.0-12.2); MONOCYTES # (AUTO) 0.7 10^3/uL (0.0-1.0); MONOCYTES % (AUTO) 14 % (0-12); NEUTROPHILS # (AUTO) 2.1 10^3/uL (1.8-7.8); NEUTROPHILS % (AUTO) 39 % (42-75); PLATELET COUNT 230 10^3/uL (130-400); WHITE BLOOD COUNT 5.3 10^3/uL (4.3-11.0)
[2023-06-22 04:31] LABS: ALBUMIN 3.5 GM/DL (3.2-4.5); BILIRUBIN,TOTAL 0.9 MG/DL (0.1-1.0); CALCIUM 8.6 MG/DL (8.5-10.1); CREATININE SERUM 1.1 MG/DL (0.60-1.30); MAGNESIUM 1.9 MG/DL (1.6-2.4); PHOSPHORUS 2.6 MG/DL (2.3-4.7); POTASSIUM 4.2 MMOL/L (3.6-5.0); TOTAL PROTEIN 6.3 GM/DL (6.4-8.2)
[2023-06-22] MEDS: POTASSIUM CHLORIDE 20 MEQ TABLET PO SCH (05:32)
[2023-06-22] MEDS: POTASSIUM CL 10MEQ/50ML IVPB 50 ML IV SCH (05:32)
[2023-06-22] MEDS: MAGNESIUM 1 GM/100 ML IVPB 100 ML IV SCH ×3 (05:32→06:00)
[2023-06-22] MEDS ORDERED: MAGNESIUM 1 GM/100 ML IVPB 200 ML IV ONE (05:45)
[2023-06-22] MEDS: NICARDIPINE IV SCH (08:46)
[2023-06-22] MEDS: NS IV SCH (08:46)
--- NOTE | 2023-06-22 08:53 | Progress Note - Hospitalist ---
Subjective HPI/CC On Admission Date Seen by Provider: Jun 22, 2023 Jeovany Gonsalez is an 88 year old male with PMH chronic back pain, chronic prescription opiate use, GERD, depression, who was admitted with stroke like symptoms. He woke up from a nap yesterday and was trying to take a drink but he could not get the cup to his mouth. He also says he was dragging his right leg when he walked. He also had some speech and swallowing dificulty. Upon my exam this morning, he is no longer having any symptoms. He was able to walk with therapy without issue. He is not having any speech or swallowing trouble. He feels like he is back to his normal self. He denies chest pain and shortness of breath. He did have some abdominal pain yesterday which has now resolved. He has no other complaints. Subjective/Events-last exam Pt reports doing much better. No compalints. Pain improved. Asking about going home. Objective Exam Vital Signs Vital Signs Date Time Temp Pulse Resp B/P (MAP) Pulse Ox O2 Delivery O2 Flow Rate FiO2 06/22/23 08:14 36.3 06/22/23 07:38 62 06/22/23 06:28 OxyMask 4.00 06/22/23 06:00 14 166/96 (119) 97 Capillary Refill : Less Than 3 Seconds General Appearance: No Apparent Distress, Chronically ill Cardiovascular: Regular Rate, Rhythm, No Murmur Gastrointestinal: Normal Bowel Sounds, Soft Neurologic/Psychiatric: Alert, Oriented x3 Results/Procedures Lab Laboratory Tests 06/22/23 03:27 Patient resulted labs reviewed. Imaging: Reviewed Imaging Report Assessment/Plan Assessment and Plan Assess & Plan/Chief Complaint CVA of left basal ganglia HTN emergency HLD Obesity CT/CTA unrevealing MRI with left basal ganglia infarction ASA and Lipitor PT/OT Nicardipine gtt off- BP improved TeleICU consulted Chronic pain Chronic prescription opiate use Fentanyl patch to continue Tramadol as needed IV Dilaudid as needed- none needed overnight DVT prophylaxis: Lovenox Critical Care Critically Ill Patient JEANNIE BARRAZA MD Jun 22, 2023 08:53
[2023-06-22] MEDS: PREGABALIN 150 MG (LYRICA) CAPSULE PO SCH ×2 (09:40→20:31)
[2023-06-22] MEDS: PANTOPRAZOLE 40 MG (PROTONIX) TAB PO SCH (09:41)
[2023-06-22] MEDS: CLOPIDOGREL 75 MG TABLET PO SCH (09:41)
[2023-06-22] MEDS: ASPIRIN 81 MG CHEWABLE TABLET PO SCH (09:41)
[2023-06-22] MEDS: CITALOPRAM 20 MG TABLET PO SCH ×2 (09:41→20:31)
[2023-06-22 11:00] VITALS: BP 176/92
--- NOTE | 2023-06-22 11:46 | Tele-ICU Progress Note ---
Subjective Date Seen by a Provider: Jun 22, 2023 Time Seen by a Provider: 10:22 Subjective/Events-last exam (Tele-ICU Physician , Progress Note ) Service provided via interactive audio and video telecommunications E-CARE system to a patient admitted to ICU bed in [facility]. Patient is seen today due to persistent need of ICU care Available chart/ vitals / labs / Images reviewed Video assessment done using teleICU camera, rest of exam as per RN Discussed with RN Events overnight : Afebrile hemodynamically stable Respiratory - I/O = Drips: Pressors- no Hospital course: (06/19) 88 Y/O Male with R/O CVA. CTH (-). (06/20) Transferred to tele-> became hypertensive with severe STILES & nausea.- >Transferred back to ICU for cardene gtt. MRI shows acute/subacute ischemia. 06/21- off cardene 06/22 A/P CVA - sumptoms resolved - CT H nedg, MRI shows acute/subacute ischemia left basal ganglia -Antithrombotic medication started- ASA , plavix -ECHO with EF 60 % , grI dst dsfnc , no shunt -carotid US no occlusion HTN - off nicardipine gtt. Po meds Chronic prescription opiate use -Fentanyl patch / Tramadol Lines : per , (Central Line Necessity Reviewed) Og: OG: Nutrition: Analgesia: Anxiety/ delirium VTE Prophylaxis: hetal 40 Stress Ulcer Prophylaxis: Plans in collaboration with bedside consultants and IM MDs. Discussed with RN to reach out if any questions or concerns Case and care daily discussed on multidisciplinary rounds ( RN, PharmD, Certified Nurse Operating Room , Respiratory Therapy, thermometer production worker ) A total of 5 minutes of critical care time was devoted to this patient today, required to treat and/or prevent further deterioration of critical care condition ( as above ) . I am remotely monitoring this patient from another state. I am unable to do the bedside exam, and history/physical and pertinent information is taken from other notes in the computer and bedside staff. Sepsis Event Evaluation Height, Weight, BMI Height: 6'0.00" Weight: 225lbs. oz. 102.994980ir; 32.85 BMI Method:Stated Exam Exam Patient acknowledged, consented, and participated in this virtual visit which was conducted using real time audio/video Vital Signs Date Time Temp Pulse Resp B/P (MAP) Pulse Ox O2 Delivery O2 Flow Rate FiO2 06/22/23 11:00 36.4 88 18 176/92 (120) 95 Room Air 06/22/23 09:00 80 9 158/87 (110) 94 OxyMask 4.00 06/22/23 08:46 166/96 06/22/23 08:14 36.3 06/22/23 08:00 96 OxyMask 4.00 06/22/23 08:00 61 7 130/74 (92) 97 OxyMask 4.00 06/22/23 07:38 62 06/22/23 07:00 67 10 126/81 (96) 95 OxyMask 4.00 06/22/23 06:28 OxyMask 4.00 06/22/23 06:00 73 14 166/96 (119) 97 OxyMask 4.00 06/22/23 05:30 36.2 06/22/23 05:00 73 10 136/77 (102) 95 OxyMask 4.00 06/22/23 04:00 79 8 137/73 (100) 96 OxyMask 4.00 06/22/23 03:44 96 OxyMask 4.00 06/22/23 03:00 94 18 147/92 (121) 92 OxyMask 4.00 06/22/23 02:00 77 11 152/89 (104) 97 OxyMask 4.00 06/22/23 01:00 93 06/22/23 01:00 74 133/79 (99) OxyMask 4.00 06/22/23 00:30 OxyMask 4.00 06/22/23 00:00 80 16 130/79 (96) 91 Room Air 06/22/23 00:00 36.6 06/22/23 00:00 94 Room Air 06/21/23 23:00 84 15 131/79 (96) 93 Room Air 06/21/23 22:00 84 12 158/90 (118) Room Air 06/21/23 21:00 84 27 157/85 (106) Room Air 06/21/23 20:00 36.8 06/21/23 20:00 86 13 180/95 (125) 92 Room Air 06/21/23 20:00 93 Room Air 06/21/23 19:00 85 06/21/23 19:00 85 10 150/88 (108) 90 Room Air 06/21/23 18:45 36.7 06/21/23 18:00 86 13 145/86 (105) 91 Room Air 06/21/23 17:00 83 11 169/89 (115) 93 Room Air 06/21/23 16:26 36.7 06/21/23 16:00 85 9 147/91 (109) 91 Room Air 06/21/23 16:00 93 Room Air 06/21/23 15:56 36.7 06/21/23 15:00 89 9 153/81 (105) 93 Room Air 06/21/23 14:00 87 14 162/83 (109) 94 Room Air 06/21/23 13:00 87 06/21/23 13:00 87 19 147/90 (109) 86 Room Air 06/21/23 12:00 86 14 148/83 (104) 91 Room Air 06/21/23 12:00 93 Room Air l I & O 06/22/23 07:00 Intake Total 1950 ml Output Total 2300 ml Balance -350 ml Height & Weight Height: 6'0.00" Weight: 225lbs. oz. 102.866319bw; 32.85 BMI Method:Stated General Appearance: No Apparent Distress, Chronically ill HEENT: PERRL/EOMI, Pharynx Normal Neck: Normal Inspection, Supple Respiratory: Lungs Clear, No Respiratory Distress Cardiovascular: Regular Rate, Rhythm, No Murmur Capillary Refill: Less Than 3 Seconds Peripheral Pulses: 2+ Dorsalis Pedis (R), 2+ Left Dors-Pedis (L), 2+ Radial Pulses (R), 2+ Radial Pulses (L) Gastrointestinal: normal bowel sounds, non tender, soft, hernia (LARGE VENTRAL HERNIA PRESENT) Extremity: Normal Inspection, Non Tender, No Pedal Edema Neurologic/Psychiatric: Alert, Oriented x3 Skin: Normal Color, Warm/Dry Results Lab Laboratory Tests 06/21/23 03:55 06/22/23 03:27 Assessment/Plan Assessment/Plan 1 JAY ZEPEDA MD Jun 22, 2023 11:46
--- NOTE | 2023-06-22 14:19 | Occupational Therapy Eval ---
OT Evaluation-General/PLF Medical Diagnosis Admission Date Jun 19, 2023 at 23:40 Medical Diagnosis: stroke Onset Date: Jun 19, 2023 Therapy Diagnosis Therapy Diagnosis: weakness Height/Weight Height (Feet): 6 Height (Inches): 0.00 Weight (Pounds): 225 Precautions Precautions/Isolations: Fall Prevention, Standard Precautions Safety Interventions: Bed Exit Alarm (chair alarm) Referral Physician: Orville Referral Reason: Activity Tolerance, Self Care, Evaluation/Treatment, Strengthening/ROM Medical History Pertinent Medical History: GERD Current History became hypertensive with severe STILES & nausea.->Transferred back to ICU for cardene gtt. MRI shows acute/subacute ischemia. 06/21- off cardene . Patient now on 4th floor, med/surg Social History Home: Single Level Current Living Status: Spouse Entry Into Home: Stairs With Railing Steps Into Home: 2 ADL-Prior Level of Function SCALE: Activities may be completed with or without assistive devices. 9-Fmmezpindx-kqgdrrz completes the activity by him/herself with no assistance from a helper. 5-Set-up or Clean-up Assistance-helper sets up or cleans up; patient completes activity. [place] assists only prior to or following the activity. 4-Supervision or Touching Assistance-helper provides verbal cues and/or touching/steadying and/or contact guard assistance as patient completes activity. Assistance may be provided throughout the activity or intermittently. 3-Partial/Moderate Assistance-helper does LESS THAN HALF the effort. [place] lifts, holds or supports trunk or limbs, but provides less than half the effort. 2-Substantial/Maximal Assistance-helper does MORE THAN HALF the effort. [place] lifts or holds trunk or limbs and provides more than half the effort. 2-Kfotcxjtu-fmqjhv does ALL the effort. Patient does none of the effort to complete the activity. Or, the assistance of 2 or more helpers is required for the patient to complete the activity. If activity was not attempted, code reason: 7-Patient Refused. 9-Not Applicable-not attempted and the patient did not perform the activity before the current illness, exacerbation or injury. 10-Not Attempted due to Environmental Limitations-(lack of equipment, weather restraints, etc.). 88-Not Attempted due to Medical Conditions or Safety Concerns. 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 Current Status Subjective Resting in bed w/ family present agreeable to OT Pain Numeric Pain Scale: 0-No Pain Comment: residula toothpaste on tick bites Mental Status/Objective Patient Orientation: Person, Place, Time, Situation Attachments: Telemetry Current Glasses/Contacts: Yes (reADING) Hearing Aids: No (IS HAARD OF HEARING) Dentures/Partials: Yes (UPPER) Upper Extremity ROM BUE ROM WFLs Upper Extremity Coordination INTACT, FAIR + Upper Extremity Strength -4/5 grossly ADL-Treatment ADL-Current Patient and report that patient has been getting up to use bathroom unattended, OT instructed patient and spouse on fall risks and safety. Eating (QC): 6 Oral Hygiene (QC): 5 (standing) Shower/Bathe Self (QC): 88 Upper Body Dressing (QC): 4 Lower Body Dressing (QC): 3 (PLOF/baseline, assist w/ LE garement feet to knees, SBA for sit to stand) On/Off Footwear (QC): 1 Toileting Hygiene (QC): 4 Education OT Patient Education: Correct positioning, Energy conservation, Modified ADL techniques, Progress toward Goal/Update tx plan, Purpose of tx/functional activi ties, Reviewed precautions, Rehab process, Safety issues, Transfer techniques, Use of adapted equipment Teaching Recipient: Patient, Family Teaching Methods: Demonstration, Discussion Response to Teaching: Verbalize Understanding, Reinforcement Needed OT Box Truck Driver Goals Box Truck Driver Goals Eating (QC): 6 Oral Hygiene (QC): 6 Toileting Hygiene (QC): 5 Shower/Bathe Self (QC): 4 Upper Body Dressing (QC): 5 Lower Body Dressing (QC): 4 1=Demonstrate adherence to instructed precautions during ADL tasks. 2=Patient will verbalize/demonstrate understanding of assistive devices/modifications for ADL. 3=Patient will improve strength/tolerance for activity to enable patient to perf orm ADL's. OT Education/Plan Problem List/Assessment Assessment: Decreased Activ Tolerance, Decreased Safety Aware, Decreased UE Strength, Impaired Coordination, Impaired Funct Balance, Impaired Self-Care Skills, Restricted Funct UE ROM Discharge Recommendations Plan/Recommendations: Continue POC Therapy Discharge Recommendati: Post Acute OT Treatment Plan/Plan of Care Treatment,Training & Education: Yes Patient would benefit from OT for education, treatment and training to promote independence in ADL's, mobility, safety and/or upper extremity function for ADL's. Plan of Care: ADL Retraining, Cognitive Retraining, Concurrent Therapy, Functional Mobility, Group Exercise/Act as Ind, UE Funct Exercise/Act, UE Neuromus Re-Ed/Coord Treatment Duration: Jun 24, 2023 Frequency: 3 times per week (3-5 TIMES PER WEEK) Estimated Hrs Per Day: .25 hour per day Agreement: Yes Rehab Potential: Fair Time Start Time: 14:10 Stop Time: 14:33 DATE: Jun 22, 2023 Total Time Billed (hr/min): 23 Billed Treatment Time EVM ADL 23 min HAKEEM POWER OT Jun 22, 2023 14:19
[2023-06-22] MEDS: ENOXAPARIN 40 MG/0.4 ML SYRINGE SC SCH (15:15)
[2023-06-22 15:25] VITALS: BP 169/81
--- NOTE | 2023-06-22 15:57 | Physical Therapy Evaluation ---
PT Evaluation-General Medical Diagnosis Admission Date Jun 19, 2023 at 23:40 Medical Diagnosis: stroke Onset Date: Jun 19, 2023 Therapy Diagnosis Therapy Diagnosis: Gait deficit, strength deficit Height/Weight Height (Feet): 6 Height (Inches): 0.00 Weight (Pounds): 225 Precautions Precautions/Isolations: Fall Prevention, Standard Precautions Weight Bear Status Right Lower Extremity: Right Full Weight Bearing Left Lower Extremity: Left Full Weight Bearing Referral Physician: Dr. Mojica Reason for Referral: Evaluation/Treatment Medical History Pertinent Medical History: GERD Reviewed History: Yes Social History Home: Single Level Current Living Status: Spouse Entry Into Home: Stairs With Railing PT Steps Into Home: 2 Prior Prior Level of Function SCALE: Activities may be completed with or without assistive devices. 8-Soyzzujfly-nfyilti completes the activity by him/herself with no assistance from a helper. 5-Set-up or Clean-up Assistance-helper sets up or cleans up; patient completes activity. [place] assists only prior to or following the activity. 4-Supervision or Touching Assistance-helper provides verbal cues and/or touching/steadying and/or contact guard assistance as patient completes activity. Assistance may be provided throughout the activity or intermittently. 3-Partial/Moderate Assistance-helper does LESS THAN HALF the effort. [place] lifts, holds or supports trunk or limbs, but provides less than half the effort. 2-Substantial/Maximal Assistance-helper does MORE THAN HALF the effort. [place] lifts or holds trunk or limbs and provides more than half the effort. 4-Vkqxppjre-yktcqc does ALL the effort. Patient does none of the effort to complete the activity. Or, the assistance of 2 or more helpers is required for the patient to complete the activity. If activity was not attempted, code reason: 7-Patient Refused. 9-Not Applicable-not attempted and the patient did not perform the activity before the current illness, exacerbation or injury. 10-Not Attempted due to Environmental Limitations-(lack of equipment, weather restraints, etc.). 88-Not Attempted due to Medical Conditions or Safety Concerns. Bed Mobility: 6 Transfers (B,C,W/C): 6 Gait: 6 Stairs: 6 Indoor Mobility (Ambulation): Independent Stairs: Independent Prior Devices Use: Other-see list below Prior Device Use: cane PT Evaluation-Current Subjective Patient lying supine in bed upon PT arrival, agreeable to treatment. Patient rates pain at 0/10 currently. Objective Patient Orientation: Person, Place, Time, Situation ROM/Strength ROM Lower Extremities WFLs all planes BLEs Strength Lower Extremities 3+/5 BLEs all planes Integumentary/Posture Bowel Incontinence: No Bladder Incontinence: No Sensory Vision: Functional Hearing: Impaired Sensation Right Lower Extremit: Intact Sensation Left Lower Extremity: Intact Transfers Roll Left to Right (QC): 4 Sit to Lying (QC): 4 Lying to Sitting/Side of Bed(Q: 4 Sit to Stand (QC): 4 Chair/Cox-je-Sgziv Xfer(QC): 4 Gait Does the Patient Walk?: Yes Mode of Locomotion: Walk Anticipated Mode of Locomotion: Walk Walk 10 feet (QC): 4 Walk 50 ft with 2 Turns(QC): 4 Walk 150 ft (QC): 4 Distance: 200' Gait Assistive Device: None Balance Sitting Static: Good Sitting Dynamic: Good Standing Static: Fair Standing Dynamic: Fair Assessment/Needs Patient tolerated treatment well. Demonstrates SBA for all bed mobility and transfers. Patient ambulates 200' with no AD, with SBA and verbal cues for safety, progression, posture and conservation of energy. Patient in bed post treatment with all needs met, nursing notified, call light in hand, in the room. Rehab Potential: Fair PT Custodial Goals Custodial Goals PT Manager Of Financial Planning Goals Time Frame: Jun 25, 2023 Roll Left & Right (QC): 6 Sit to Lying (QC): 6 Lying-Sitting on Side/Bed(QC): 6 Sit to Stand (QC): 6 Chair/Iny-qt-Wydsq Xfer(QC): 6 Toilet Transfer (QC): 6 Walk 10 feet (QC): 6 Walk 50ft with 2 Turns (QC): 6 Walk 150 ft (QC): 6 PT Plan Treatment/Plan Treatment Plan: Continue Plan of Care Treatment Plan: Bed Mobility, Education, Functional Activity Sue, Functional Strength, Gait, Safety, Therapeutic Exercise, Transfers Treatment Duration: Jun 25, 2023 Frequency: 5 times per week Estimated Hrs Per Day: .25 hour per day Patient and/or Family Agrees t: Yes Safety Risks/Education Patient Education: Gait Training, Transfer Techniques Teaching Recipient: Patient Teaching Methods: Demonstration, Discussion Response to Teaching: Verbalize Understanding, Return Demonstration Time Time In: 1518 Time Out: 1533 DATE: Jun 22, 2023 Total Billed Treatment Time: 15 Total Billed Treatment Visit, MARBELLA LIM PT Jun 22, 2023 15:57
[2023-06-22] MEDS: TAMSULOSIN 0.4 MG (FLOMAX) CAP PO SCH (17:33)
[2023-06-22 19:17] VITALS: BP 166/76
[2023-06-22] MEDS: ONDANSETRON 4 MG/2 ML (SDV) Z0FRAN IV PRN (19:43)
[2023-06-22] MEDS ORDERED: amLODIPine 5 MG TABLET PO ONE (20:45)
[2023-06-22] MEDS ORDERED: FENTANYL PATCH REMOVAL TP SCH (20:59)
[2023-06-22] MEDS ORDERED: FENTANYL 100 MCG TD SCH (21:00)
[2023-06-22 23:25] VITALS: BP 138/73
[2023-06-23 03:07] VITALS: BP 146/75
[2023-06-23 05:47] LABS: BASOPHILS % (AUTO) 1 % (0-10); EOSINOPHILS # (AUTO) 0.2 10^3/uL (0.0-0.3); EOSINOPHILS % (AUTO) 4 % (0-10); HEMATOCRIT 41 % (40-54); HEMOGLOBIN 13.8 g/dL (13.3-17.7); LYMPHOCYTES # (AUTO) 2.5 10^3/uL (1.0-4.0); LYMPHOCYTES % (AUTO) 46 % (12-44); MEAN CORPUSCULAR HEMOGLOBIN 29 pg (25-34); MEAN CORPUSCULAR HGB CONC 33 g/dL (32-36); MEAN CORPUSCULAR VOLUME 88 fL (80-99); MONOCYTES # (AUTO) 0.7 10^3/uL (0.0-1.0); MONOCYTES % (AUTO) 13 % (0-12); NEUTROPHILS % (AUTO) 36 % (42-75); PLATELET COUNT 210 10^3/uL (130-400); WHITE BLOOD COUNT 5.4 10^3/uL (4.3-11.0)
[2023-06-23 06:04] LABS: ALBUMIN 3.4 GM/DL (3.2-4.5); BILIRUBIN,TOTAL 0.7 MG/DL (0.1-1.0); CALCIUM 8.4 MG/DL (8.5-10.1); CREATININE SERUM 1.08 MG/DL (0.60-1.30); PHOSPHORUS 2.6 MG/DL (2.3-4.7); POTASSIUM 3.7 MMOL/L (3.6-5.0); TOTAL PROTEIN 5.9 GM/DL (6.4-8.2)
[2023-06-23] MEDS: POTASSIUM CL 10MEQ/50ML IVPB 50 ML IV SCH (06:07)
[2023-06-23] MEDS: MAGNESIUM 1 GM/100 ML IVPB 100 ML IV SCH (06:07)
[2023-06-23] MEDS: POTASSIUM CHLORIDE 20 MEQ TABLET PO SCH (06:08)
[2023-06-23 07:40] VITALS: BP 172/85
[2023-06-23] MEDS: ASPIRIN 81 MG CHEWABLE TABLET PO SCH (08:29)
[2023-06-23] MEDS: CITALOPRAM 20 MG TABLET PO SCH (08:29)
[2023-06-23] MEDS: PANTOPRAZOLE 40 MG (PROTONIX) TAB PO SCH (08:30)
[2023-06-23] MEDS: CLOPIDOGREL 75 MG TABLET PO SCH (08:30)
[2023-06-23] MEDS: PREGABALIN 150 MG (LYRICA) CAPSULE PO SCH (08:30)
[2023-06-23] MEDS ORDERED: amLODIPine 5 MG TABLET PO SCH (09:00)
[2023-06-23] MEDS ORDERED: POTASSIUM CHLORIDE 20 MEQ TABLET PO ONE (09:00)
--- NOTE | 2023-06-23 09:56 | Physical Therapy Daily Note ---
PT Daily Note-Current Subjective Patient agrees to PT. Pain Section J - Health Conditions 1. Rarely or not at all 2. Occasionally 3. Frequently 4. Almost constantly 8. Unable to answer Pain Effect on Sleep: 1 Pain Interference with Therapy: 1 Pain Interference w/Day-to-Day: 1 Mental Status Patient Orientation: Normal For Age Transfers SCALE: Activities may be completed with or without assistive devices. 6-Cwowwokyid-tgnevvl completes the activity by him/herself with no assistance from a helper. 5-Set-up or Clean-up Assistance-helper sets up or cleans up; patient completes activity. [place] assists only prior to or following the activity. 4-Supervision or Touching Assistance-helper provides verbal cues and/or touching/steadying and/or contact guard assistance as patient completes activity. Assistance may be provided throughout the activity or intermittently. 3-Partial/Moderate Assistance-helper does LESS THAN HALF the effort. [place] lifts, holds or supports trunk or limbs, but provides less than half the effort. 2-Substantial/Maximal Assistance-helper does MORE THAN HALF the effort. [place] lifts or holds trunk or limbs and provides more than half the effort. 8-Ukxzixzzl-pxsdkp does ALL the effort. Patient does none of the effort to complete the activity. Or, the assistance of 2 or more helpers is required for the patient to complete the activity. If activity was not attempted, code reason: 7-Patient Refused. 9-Not Applicable-not attempted and the patient did not perform the activity before the current illness, exacerbation or injury. 10-Not Attempted due to Environmental Limitations-(lack of equipment, weather restraints, etc.). 88-Not Attempted due to Medical Conditions or Safety Concerns. Sit to Lying (QC): 6 Sit to Stand (QC): 6 Chair/Fuj-nj-Bhftj Xfer(QC): 6 Weight Bearing Right Lower Extremity: Right Full Weight Bearing Left Lower Extremity: Left Full Weight Bearing Gait Training Distance: 250' Walk 10 feet (QC): 6 Walk 50 ft with 2 Turns(QC): 6 Walk 150 ft (QC): 6 Gait Assistive Device: None safe and functional with no deviation Stair Training Stair Training: Handrails/: 2 handrails #of Steps: 4 1 Step (curb) (QC): 6 4 Steps (QC): 6 Stairs: Pattern: Reciprocal Assessment Patient much improved on this date and is currently at PLOF with all gross motor skills safely. Patient to dismiss to home on this date per physician. PT Encyclopedia Research Worker Goals Encyclopedia Research Worker Goals PT Shelter Goals Time Frame: Jun 25, 2023 Roll Left & Right (QC): 6 Sit to Lying (QC): 6 Lying-Sitting on Side/Bed(QC): 6 Sit to Stand (QC): 6 Chair/Alt-oa-Yxhds Xfer(QC): 6 Toilet Transfer (QC): 6 Walk 10 feet (QC): 6 Walk 50ft with 2 Turns (QC): 6 Walk 150 ft (QC): 6 PT Plan Treatment/Plan Treatment Plan: Discontinue PT Treatment Plan: Bed Mobility, Education, Functional Activity Sue, Functional Strength, Gait, Safety, Therapeutic Exercise, Transfers Treatment Duration: Jun 25, 2023 Frequency: 5 times per week Estimated Hrs Per Day: .25 hour per day Patient and/or Family Agrees t: Yes Time Time In: 830 Time Out: 841 DATE: Jun 23, 2023 Total Billed Treatment Time: 11 Total Billed Treatment 1 visit FA 11 min TOMY VILLARREAL PT Jun 23, 2023 09:56
[2023-06-23] MEDS ORDERED: AMLO-250 PO (10:40)
[2023-06-23] MEDS ORDERED: ATOR40TA PO (10:40)
[2023-06-23] MEDS ORDERED: ASPI81TA64 PO (10:40)
[2023-06-23] MEDS ORDERED: CLOP75TA28 PO (10:40)
--- NOTE | 2023-06-23 10:41 | Discharge Inst-Simple/Standard ---
Discharge Inst-Standard Discharge Medications New, Converted or Re-Newed RX: Transmitted to Pharmacy Patient Instructions/Follow Up Plan of Care/Instructions/FU: Please continue to take your medications as written. Please follow up with your primary care doctor to follow up this hospital stay. Activity as Tolerated: Yes Discharge Diet: Soft Diet (and bite sized) Return to [facility] For: Chest pain, shortness of breath, fever, weakness, if you feel you are getting worse. JEANNIE BARRAZA MD Jun 23, 2023 10:41
--- NOTE | 2023-06-23 10:46 | Discharge Summary ---
Diagnosis/Chief Complaint Date of Admission Jun 19, 2023 at 23:40 Date of Discharge Discharge Date: Jun 23, 2023 Admission Diagnosis CVA of left basal ganglia Primary Care Mane Ng MD Discharge Diagnosis (1) Cerebrovascular accident (CVA) of left basal ganglia Status: Acute (2) Hypertensive emergency Status: Acute (3) HTN (hypertension) Status: Acute (4) HLD (hyperlipidemia) Status: Acute (5) Obesity Status: Chronic (6) Chronic pain Status: Chronic (7) Chronic prescription opiate use Status: Chronic Discharge Summary Discharge Physical Exam Allergies: Coded Allergies: morphine (Unverified Allergy, Severe, 03/19/22) HALLUCINATIONS Vitals & I&Os Vital Signs Date Time Temp Pulse Resp B/P (MAP) Pulse Ox O2 Delivery O2 Flow Rate FiO2 06/23/23 08:00 Room Air 06/23/23 07:40 36.9 71 21 172/85 (114) 94 06/22/23 09:00 4.00 Hospital Course Labs (last 24 hrs) Laboratory Tests 06/23/23 05:35: White Blood Count 5.4, Red Blood Count 4.69, Hemoglobin 13.8, Hematocrit 41, Mean Corpuscular Volume 88, Mean Corpuscular Hemoglobin 29, Mean Corpuscular Hemoglobin Concent 33, Red Cell Distribution Width 12.7, Platelet Count 210, Mean Platelet Volume 10.0, Immature Granulocyte % (Auto) 0, Neutrophils (%) (Auto) 36L, Lymphocytes (%) (Auto) 46H, Monocytes (%) (Auto) 13H, Eosinophils (%) (Auto) 4, Basophils (%) (Auto) 1, Neutrophils # (Auto) 2.0, Lymphocytes # (Auto) 2.5, Monocytes # (Auto) 0.7, Eosinophils # (Auto) 0.2, Basophils # (Auto) 0.0, Immature Granulocyte # (Auto) 0.0, Sodium Level 135, Potassium Level 3.7, Chloride Level 103, Carbon Dioxide Level 27, Anion Gap 5, Blood Urea Nitrogen 14, Creatinine 1.08, Estimat Glomerular Filtration Rate 67, BUN/Creatinine Ratio 13, Glucose Level 129H, Calcium Level 8.4L, Corrected Calcium 8.9, Phosphorus Level 2.6, Magnesium Level 2.0, Total Bilirubin 0.7, Aspartate Amino Transf (AST/SGOT) 45H, Alanine Aminotransferase (ALT/SGPT) 26, Alkaline Phosphatase 109, Total Protein 5.9L, Albumin 3.4 Microbiology 06/19/23 MRSA Screen - Final, Complete MRSA not isolated Patient resulted labs reviewed. Pending Labs Laboratory Tests 06/23/23 05:35: White Blood Count 5.4, Red Blood Count 4.69, Hemoglobin 13.8, Hematocrit 41, Mean Corpuscular Volume 88, Mean Corpuscular Hemoglobin 29, Mean Corpuscular Hemoglobin Concent 33, Red Cell Distribution Width 12.7, Platelet Count 210, Mean Platelet Volume 10.0, Immature Granulocyte % (Auto) 0, Neutrophils (%) (Auto) 36, Lymphocytes (%) (Auto) 46, Monocytes (%) (Auto) 13, Eosinophils (%) (Auto) 4, Basophils (%) (Auto) 1, Neutrophils # (Auto) 2.0, Lymphocytes # (Auto) 2.5, Monocytes # (Auto) 0.7, Eosinophils # (Auto) 0.2, Basophils # (Auto) 0.0, Immature Granulocyte # (Auto) 0.0, Sodium Level 135, Potassium Level 3.7, Chloride Level 103, Carbon Dioxide Level 27, Anion Gap 5, Blood Urea Nitrogen 14, Creatinine 1.08, Estimat Glomerular Filtration Rate 67, BUN/Creatinine Ratio 13, Glucose Level 129, Calcium Level 8.4, Corrected Calcium 8.9, Phosphorus Level 2.6, Magnesium Level 2.0, Total Bilirubin 0.7, Aspartate Amino Transf (AST/SGOT) 45, Alanine Aminotransferase (ALT/SGPT) 26, Alkaline Phosphatase 109, Total Protein 5.9, Albumin 3.4 Imaging: Reviewed Imaging Report Discharge Home Medications: Active Scripts Active Children's Aspirin (Aspirin) 81 Mg Tab.chew 81 Mg PO DAILY@0900 Amlodipine Besylate 5 Mg Tablet 5 Mg PO DAILY Lipitor (Atorvastatin Calcium) 40 Mg Tablet 40 Mg PO HS Clopidogrel (Clopidogrel Bisulfate) 75 Mg Tablet 75 Mg PO DAILY Reported 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 Pump TOP DAILY Fruit & Vegetable Daily Sftgel (Lycopene/Lut Xt/Fruit Extracts) 5 Mg-6 Mg-150 Mg Capsule 1 Each PO DAILY Excedrin Extra Strength Caplet (Aspirin/Acetaminophen/Caffeine) 250 Mg-250 Mg-65 Mg Tablet 2 Each PO Q8H PRN Pregabalin 150 Mg Capsule 300 Mg PO BID TAKES 2 (150MG) CAPS Escitalopram Oxalate 20 Mg Tablet 20 Mg PO BID Omeprazole 40 Mg Capsule.dr 40 Mg PO DAILY Fentanyl Patch 100 MCG (Fentanyl) 100 Mcg/Hour Patch.td72 100 Mcg TD Q48H Tramadol HCl 50 Mg Tablet 100 Mg PO Q4H TAKES 2 (50MG) TABS Silodosin 8 Mg Capsule 8 Mg PO HS Instructions to patient/family Please see electronic discharge instructions given to patient. Problem Qualifiers (1) HTN (hypertension): Hypertension type: primary hypertension Qualified Codes: I10 - Essential (primary) hypertension JEANNIE BARRAZA MD Jun 23, 2023 10:46
[2023-06-23 11:06] VITALS: BP 172/85
[2023-06-24] MEDS ORDERED: FENTANYL 100 MCG TD SCH (09:00)
== END 2023-06-23 11:10 | disposition home or self-care (01) | DRG 65 ==
LOC: EDUNIT# 21:30 → ER 21:31 → ICU 23:40 → 4TH 06-20 11:09 → ICU 06-20 16:10 → 4TH 06-22 10:39
PROVIDERS: ADMIT Internal Medicine; ATTEND Family Medicine
DX: I63.9 Cerebral infarction, unspecified (principal); G81.91 Hemiplegia, unspecified affecting right dominant side; I16.1 Hypertensive emergency; R47.01 Aphasia; R29.810 Facial weakness; I10 Essential (primary) hypertension; E78.00 Pure hypercholesterolemia, unspecified; R29.705 NIHSS score 5; G89.21 Chronic pain due to trauma; G44.89 Other headache syndrome; S06.89AS Other specified intracranial injury with loss of consciousness status unknown, sequela; E66.9 Obesity, unspecified; Z68.31 Body mass index [BMI] 31.0-31.9, adult; K21.9 Gastro-esophageal reflux disease without esophagitis; K57.90 Diverticulosis of intestine, part unspecified, without perforation or abscess without bleeding; F32.A Depression, unspecified; Z20.822 Contact with and (suspected) exposure to COVID-19; Z85.51 Personal history of malignant neoplasm of bladder; H54.7 Unspecified visual loss; H91.90 Unspecified hearing loss, unspecified ear; Z87.891 Personal history of nicotine dependence; Z79.899 Other long term (current) drug therapy; Z79.891 Long term (current) use of opiate analgesic; Z88.5 Allergy status to narcotic agent
CPT/HCPCS: 36415; 70450; 70496; 70498; 70551; 71045; 80053; 80061; 80320; 81000; 83735; 84100; 84443; 84484; 85025; 85379; 85610; 85730; 86666; 86668; 86757; 87081; 87636; 93005; 93041; 93306; 93880

== ENCOUNTER → 2023-07-04 | Outpatient (CLI) | payer MEDICARE, OTHER ==
[~2023-07-04] MED LIST changes: +AMLO-250 PO; +ASPI-992 PO; +ASPI81TA64 PO; +ATOR40TA PO; +CLOP75TA28 PO; +ESCI20TA39 PO; +HOLD METFORMIN - RECEIVED CONTRAST 20 ML VIAL IV SCH; +IOHEXOL 350 MG/ML 100 ML (OMNIPAQUE 350) VIAL IV ONE; +LYCO1CAP2 PO; +NS 100 ML (IVPB) BAG IV ONE; +OMEP40CA6 PO; +PREG150C46 PO; +TEST75GE12 TOP; +TRAM50TA3 PO
--- NOTE | 2023-07-04 16:35 | Diagnostic Imaging Report ---
PROCEDURE: CT abdomen and pelvis with contrast. TECHNIQUE: Multiple contiguous axial images were obtained through the abdomen and pelvis after administration of intravenous contrast. Auto Exposure Controls were utilized during the CT exam to meet ALARA standards for radiation dose reduction. All CT scans use one or more of the following dose optimizing techniques: automated exposure control, MA and/or KvP adjustment based on patient size and exam type or iterative reconstruction. INDICATION: Hematuria for two weeks. COMPARISON: Comparison is made with prior CT abdomen and pelvis study from 02/24/2022. FINDINGS: Lung bases are clear. Low-attenuation lesion in the left lobe of the liver is again noted, consistent with a cyst. No other liver lesions are identified. Gallbladder is surgically absent. There is no biliary ductal dilatation. Pancreas and spleen are unremarkable. No adrenal mass is detected. There is a nonobstructing calculus in the right kidney approximately 8 mm in size. No ureteral calculi or hydronephrosis is identified. Images through the bladder do show some areas of nodularity in the base of bladder as well as near the bladder dome. Recurrent bladder tumors cannot be entirely excluded. Aorta is nonaneurysmal. No definite abdominal or pelvic lymphadenopathy is detected. Bowel loops are normal in caliber. There is no ascites. IMPRESSION: 1. Nonobstructing right-sided nephrolithiasis. No ureteral calculi or hydronephrosis is identified. 2. There are areas of nodularity within the bladder, concerning for recurrent bladder tumors. Cystoscopy would be recommended for further evaluation. Dictated by: Dictated on workstation # [id number]
== END ==
LOC: RAD 13:44
PROVIDERS: ATTEND Internal Medicine
DX: C67.9 Malignant neoplasm of bladder, unspecified (principal); N20.0 Calculus of kidney
CPT/HCPCS: 74177

== ENCOUNTER → 2023-08-22 | Outpatient (CLI) | payer MEDICARE, OTHER ==
[~2023-08-22] MED LIST changes: -HOLD METFORMIN - RECEIVED CONTRAST 20 ML VIAL IV SCH; -IOHEXOL 350 MG/ML 100 ML (OMNIPAQUE 350) VIAL IV ONE; -NS 100 ML (IVPB) BAG IV ONE; -PREG150C46 PO; +PREG150C47 PO
[2023-08-22 11:12] LABS: CLARITY,URINE CLEAR; COLOR,URINE YELLOW
[2023-08-22 11:13] LABS: BACTERIA,URINE LARGE /HPF; BILIRUBIN,URINE NEGATIVE (NEGATIVE); GLUCOSE, URINE (UA) NEGATIVE (NEGATIVE); KETONES,URINE NEGATIVE (NEGATIVE); LEUKOCYTE ESTERASE ,URINE 2+ (NEGATIVE); NITRITE,URINE POSITIVE (NEGATIVE); PH,URINE >=9.0 (5-9); PROTEIN,URINE 2+ (NEGATIVE)
== END ==
LOC: LAB 10:45
PROVIDERS: ATTEND Internal Medicine
DX: R20.8 Other disturbances of skin sensation (principal); N99.89 Other postprocedural complications and disorders of genitourinary system
CPT/HCPCS: 81000; 87077; 87088

== ENCOUNTER → 2023-08-30 | Outpatient (CLI) | payer MEDICARE, OTHER ==
[2023-08-30 13:55] LABS: CLARITY,URINE CLOUDY; COLOR,URINE YELLOW; PH,URINE 8.5 (5-9)
[2023-08-30 13:56] LABS: AMORPHOUS SEDIMENT,UR MOD AMOR PHOSPHATE /LPF; BACTERIA,URINE LARGE /HPF; BILIRUBIN,URINE NEGATIVE (NEGATIVE); GLUCOSE, URINE (UA) NEGATIVE (NEGATIVE); KETONES,URINE NEGATIVE (NEGATIVE); LEUKOCYTE ESTERASE ,URINE 2+ (NEGATIVE); NITRITE,URINE POSITIVE (NEGATIVE); PROTEIN,URINE 2+ (NEGATIVE); RBC,URINE 0-2 /HPF; TRIPLE PHOSPHATE CRYSTAL,UR FEW /LPF; WBC,URINE 50-100 /HPF
== END ==
LOC: LAB 13:32
PROVIDERS: ATTEND Internal Medicine
DX: R30.9 Painful micturition, unspecified (principal)
CPT/HCPCS: 81000; 87077; 87088; 87186

== ENCOUNTER → 2023-09-19 | Outpatient (CLI) | payer MEDICARE, OTHER | LOC: LAB 10:54 | PROVIDERS: ATTEND Nurse Practitioner Family | DX: C67.4 Malignant neoplasm of posterior wall of bladder (principal) | CPT/HCPCS: 87077; 87088; 87186 ==